=== PATIENT | male | born 1965 | race Caucasian/White ===

== ENCOUNTER → 2018-03-28 | Outpatient (CLI) | payer BC ==
--- NOTE | 2018-03-28 14:09 | EST ---
EXERCISE STRESS DATE OF SERVICE: 03/28/2018 AGE: 52 SEX: Male HT: 5'5" WT: 210 PROTOCOL: Benny STAGE: II DURATION OF EXERCISE: 7:30 HEART RATE REST: 66 BLOOD PRESSURE REST: 114/79 MAXIMUM HEART RATE ACHIEVED: 145 MAXIMUM BLOOD PRESSURE: 179/62 85% MPHR: 141 100% MPHR: 166 METS: 9.1 INDICATIONS: Chest pain. CLINICAL INFORMATION: STRESS DATA: Pretesting physical examination showed a heart rate of 66, pressure is 114/79 mmHg. Baseline EKG showed sinus mechanism. The patient exercised on the treadmill according to Benny protocol for a total of 7 minutes and achieved 9.1 METs. Max heart rate was 145 which is about 91% of maximum predicted heart rate. Maximum blood pressure was 179/62 mmHg. Clinically the patient did not have any symptoms of chest pain or discomfort during the testing, but he did develop some shortness of breath. The EKG showed about 0.[address]-segment depression on recovery. CONCLUSION: 1. Good exercise tolerance. 2. Shortness of breath in response to exercise. 3. Mildly abnormal EKG in response to exercise with evidence of 0.[address]- segment depression on recovery. 4. If the chest discomfort is concerning, I would recommend doing stress test with imaging modality or coronary angiogram. MMODL / IJN: [id number] /
== END | disposition home or self-care (01) ==
LOC: RADNMMAIN 10:36
PROVIDERS: ATTEND Pediatrics
DX: R94.31 Abnormal electrocardiogram [ECG] [EKG] (principal); R06.02 Shortness of breath; R07.9 Chest pain, unspecified
CPT/HCPCS: 93017

== ENCOUNTER 2019-11-25 09:35 | Observation (INO) | payer BC ==
--- NOTE | 2019-11-25 10:20 | ED ---
General Adult HPI - General Chief complaint: Chest Pain Stated complaint: chest pain Time Seen by Provider: 11/25/19 09:37 Source: patient Mode of arrival: ambulatory Limitations: no limitations - History of Present Illness Initial comments: Dictation was produced using [employer] dictation software. please excuse any grammatical, word or spelling errors. Chief Complaint: 54-year-old male with no known medical history presents with chest pain. History of Present Illness: 54-year-old male presents today with chest pain. He states that the pain was severe and sharp to the left anterior area. He states it radiates to the back. She said the pain was so bad it dropped into his knees. 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 He states he was working with a leave when symptoms began. Patient reports that his pain as sharp and especially wors e with deep inspiration. Did complain of some mild diaphoresis. He states that his pain is improved although still apparent currently. The ROS documented in this emergency department record has been reviewed and confirmed by me. Those systems with pertinent positive or negative responses have been documented in the HPI. All other systems are other negative and/or noncontributory. PHYSICAL EXAM: General Impression: Alert and oriented x3, not in acute distress HEENT: Normocephalic atraumatic, extra-ocular movements intact, pupils equal and reactive to light bilaterally, mucous membranes moist. Cardiovascular: Heart regular rate and rhythm, S1&S2 audible, no murmurs, rubs or gallops Chest: Lungs clear to auscultation bilaterally, no rhonchi, no wheeze, no rales Abdomen: Bowel sounds present, abdomen soft, non-tender, non-distended, no organomegaly Musculoskeletal: Pulses present and equal in all extremities, no peripheral edema Motor: no focal deficits noted Neurological: CN II-XII grossly intact, no focal motor or sensory deficits noted Skin: Intact with no visualized rashes Psych: Normal affect and mood ED course: 54-year-old male presents with chest pain. Pain is atypical with typical features. Signs upon arrival are within acceptable limits.Laboratory evaluation obtained. CBC unremarkable. Coag panel unremarkable. Metabolic panel is negative. Troponin is negative. D-dimer 0.43. Given the patient reports that his pain was severe CT of the aorta was obtained. No evidence of acute aortic dissection. No evidence of PE. Patient states he still symptomatic he is concerned about his symptoms. Reassurance provided. He did not feel safe to be discharged. We'll admit patient for serial troponins and cardiology consultation. She given aspirin. Evaluated bedside and appears to be stable at this time. EKG interpretation: Ventricular rate 65, normal sinus rhythm, WY interval 188, care is 88, QTC 393.. No WY prolongation, no QTC prolongation, no ST or T-wave changes noted. Overall, this EKG is unremarkable - Related Data Home Medications Medication Instructions Recorded Confirmed Ibuprofen [Motrin] 800 mg PO TID PRN 11/25/19 11/25/19 Allergies Allergy/AdvReac Type Severity Reaction Status Date / Time No Known Allergies Allergy Verified 11/25/19 10:42 Review of Systems ROS Statement: Those systems with pertinent positive or pertinent negative responses have been documented in the HPI. ROS Other: All systems not noted in ROS Statement are negative. Past Medical History Past Medical History: Pneumonia History of Any Multi-Drug Resistant Organisms: None Reported Past Surgical History: Back Surgery, Orthopedic Surgery Additional Past Surgical History / Comment(s): Sx on bilateral feet, testical sx Past Psychological History: No Psychological Hx Reported Smoking Status: Former smoker Past Alcohol Use History: Occasional Past Drug Use History: None Reported General Exam Limitations: no limitations Course Vital Signs 11/25/19 09:37 Temperature 98.2 F Pulse Rate 67 Respiratory 20 Rate Blood Pressure 110/81 O2 Sat by Pulse 99 Oximetry Medical Decision Making - Lab Data Result diagrams: 11/25/19 09:51 11/25/19 09:51 Lab Results 11/25/19 11/25/19 11/25/19 Range/Units 09:51 09:51 09:51 WBC 7.7 (3.8-10.6) k/uL RBC 5.02 (4.30-5.90) m/uL Hgb 15.4 (13.0-17.5) gm/dL Hct 46.9 (39.0-53.0) % MCV 93.4 (80.0-100.0) fL MCH 30.7 (25.0-35.0) pg MCHC 32.8 (31.0-37.0) g/dL RDW 12.9 (11.5-15.5) % Plt Count 231 (150-450) k/uL Neutrophils % 65 % Lymphocytes % 25 % Monocytes % 7 % Eosinophils % 1 % Basophils % 1 % Neutrophils # 5.0 (1.3-7.7) k/uL Lymphocytes # 1.9 (1.0-4.8) k/uL Monocytes # 0.6 (0-1.0) k/uL Eosinophils # 0.1 (0-0.7) k/uL Basophils # 0.1 (0-0.2) k/uL PT 9.5 (9.0-12.0) sec INR 0.9 (<1.2) APTT 21.8 L (22.0-30.0) sec D-Dimer 0.43 (<0.60) mg/L FEU Sodium 139 (137-145) mmol/L Potassium 4.4 (3.5-5.1) mmol/L Chloride 107 (98-107) mmol/L Carbon Dioxide 25 (22-30) mmol/L Anion Gap 7 mmol/L BUN 18 (9-20) mg/dL Creatinine 0.93 (0.66-1.25) mg/dL Est GFR (CKD-EPI)AfAm >90 (>60 ml/min/1.73 sqM) Est GFR (CKD-EPI)NonAf >90 (>60 ml/min/1.73 sqM) Glucose 103 H (74-99) mg/dL Calcium 9.2 (8.4-10.2) mg/dL Magnesium 2.2 (1.6-2.3) mg/dL Total Bilirubin 1.6 H (0.2-1.3) mg/dL AST 33 (17-59) U/L ALT 27 (4-49) U/L Alkaline Phosphatase 70 (38-126) U/L Troponin I (0.000-0.034) ng/mL Total Protein 6.8 (6.3-8.2) g/dL Albumin 4.0 (3.5-5.0) g/dL 11/25/19 Range/Units 09:51 WBC (3.8-10.6) k/uL RBC (4.30-5.90) m/uL Hgb (13.0-17.5) gm/dL Hct (39.0-53.0) % MCV (80.0-100.0) fL MCH (25.0-35.0) pg MCHC (31.0-37.0) g/dL RDW (11.5-15.5) % Plt Count (150-450) k/uL Neutrophils % % Lymphocytes % % Monocytes % % Eosinophils % % Basophils % % Neutrophils # (1.3-7.7) k/uL Lymphocytes # (1.0-4.8) k/uL Monocytes # (0-1.0) k/uL Eosinophils # (0-0.7) k/uL Basophils # (0-0.2) k/uL PT (9.0-12.0) sec INR (<1.2) APTT (22.0-30.0) sec D-Dimer (<0.60) mg/L FEU Sodium (137-145) mmol/L Potassium (3.5-5.1) mmol/L Chloride (98-107) mmol/L Carbon Dioxide (22-30) mmol/L Anion Gap mmol/L BUN (9-20) mg/dL Creatinine (0.66-1.25) mg/dL Est GFR (CKD-EPI)AfAm (>60 ml/min/1.73 sqM) Est GFR (CKD-EPI)NonAf (>60 ml/min/1.73 sqM) Glucose (74-99) mg/dL Calcium (8.4-10.2) mg/dL Magnesium (1.6-2.3) mg/dL Total Bilirubin (0.2-1.3) mg/dL AST (17-59) U/L ALT (4-49) U/L Alkaline Phosphatase (38-126) U/L Troponin I <0.012 (0.000-0.034) ng/mL Total Protein (6.3-8.2) g/dL Albumin (3.5-5.0) g/dL Disposition Clinical Impression: Chest pain Disposition: ADMITTED IP TO THIS [facility] Condition: Fair Referrals: Daniel Johnston MD [Primary Care Provider] - 1-2 days Decision Time: 12:43
[2019-11-25 10:40] LABS: ALT 27 U/L (4-49); AST 33 U/L (17-59); African American GFR (CKD) >90 (>60 ml/min/1.73 sqM); Alkaline Phosphatase 70 U/L (38-126); Anion Gap 7 mmol/L; Basophils # (A) 0.1 k/uL (0-0.2); Basophils % (A) 1 %; Blood Urea Nitrogen 18 mg/dL (9-20); Calcium 9.2 mg/dL (8.4-10.2); Carbon Dioxide 25 mmol/L (22-30); Chloride 107 mmol/L (98-107); Eosinophils # (A) 0.1 k/uL (0-0.7); Eosinophils % (A) 1 %; Glucose 103 mg/dL (74-99); HCT 46.9 % (39.0-53.0); HGB 15.4 gm/dL (13.0-17.5); Lymphocytes # (A) 1.9 k/uL (1.0-4.8); Lymphocytes % (A) 25 %; MCH 30.7 pg (25.0-35.0); MCHC 32.8 g/dL (31.0-37.0); MCV 93.4 fL (80.0-100.0); Magnesium 2.2 mg/dL (1.6-2.3); Mean Platelet Volume 7.6; Monocytes # (A) 0.6 k/uL (0-1.0); Monocytes % (A) 7 %; Neutrophils % (A) 65 %; Non-African American GFR(CKD) >90 (>60 ml/min/1.73 sqM); Platelet Count 231 k/uL (150-450); RBC 5.02 m/uL (4.30-5.90); RDW 12.9 % (11.5-15.5); Sodium 139 mmol/L (137-145); Total Bilirubin 1.6 mg/dL (0.2-1.3); Total Protein 6.8 g/dL (6.3-8.2); WBC 7.7 k/uL (3.8-10.6)
--- NOTE | 2019-11-25 10:51 | XR ---
EXAMINATION TYPE: XR chest 2V DATE OF EXAM: 11/25/2019 COMPARISON: NONE HISTORY: Chest pain TECHNIQUE: Frontal and lateral views of the chest are obtained. FINDINGS: There is no focal air space opacity, pleural effusion, or pneumothorax seen. The cardiac silhouette size is within normal limits. The osseous structures are intact. There are overlying car diac leads. IMPRESSION: No acute cardiopulmonary process.
[2019-11-25 10:53] LABS: Potassium 4.4 mmol/L (3.5-5.1)
[2019-11-25 10:55] LABS: D-Dimer 0.43 mg/L FEU (<0.60); INR 0.9 (<1.2); Prothrombin Time 9.5 sec (9.0-12.0)
[2019-11-25 10:56] LABS: Partial Thromboplastin Time 21.8 sec (22.0-30.0)
--- NOTE | 2019-11-25 12:26 | CT ---
EXAMINATION TYPE: CT angio thor/abd pel aorta DATE OF EXAM: 11/25/2019 COMPARISON: None. HISTORY: Chest and Upper Abdominal pain with shortness of breath CT DLP: 1692.1 mGycm. Automated Exposure Control for Dose Reduction was Utilized. CONTRAST: CTA scan of the thorax abdomen pelvis is performed without and with IV Contrast, patient injected wit h 100 mL of Isovue 370. Vascular protocol with 3-D reconstructed images. In the dependent workstation and reviewed FINDINGS: VASCULAR: Satisfactory enhancement of the pulmonary artery and its branches, no CT evidence for acute pulmonary embolism. Aorta is visualized in its entirety including through the common femoral artery bifurcation bilateral groin region. Patency of vessels from aortic arch. Patent celiac artery, SMA, I MA, and bilateral single renal arteries. No significant stenosis. No linear hypodensity to suggest di ssection. No aneurysm. Minimal calcified plaque distal abdominal aorta. LUNGS: Some patchy bibasilar linear scarring and/or atelectasis There is no pleural effusion or pneum othorax seen. The tracheobronchial tree is patent. No concerning nodules or masses. MEDIASTINUM: There are no greater than 1 cm hilar or mediastinal lymph nodes. No pericardial effusi on is seen. LIVER/GB: Liver is low dense consistent with diffuse fatty infiltration. PANCREAS: No significant abnormality is seen. SPLEEN: No significant abnormality is seen. ADRENALS: No significant abnormality is seen. KIDNEYS: No significant abnormality is seen. BOWEL: Appendix slightly more dilated at tip without surrounding fat stranding up to 8 mm axial image 168. Central low dense material. GENITAL ORGANS: No gross abnormality seen. LYMPH NODES: No greater than 1cm abdominal or pelvic lymph nodes are appreciated. OSSEOUS STRUCTURES: Postsurgical change lumbosacral junction with posterior fusion hardware, grade 1 anterolisthesis L5 on S1 measuring 6 mm. Moderate disc space narrowing with vacuum disc phenomenon L5 -S1 level. Well-corticated defect anterior superior T11 endplate could reflect limbus vertebra. OTHER: No significant additional abnormality is seen. IMPRESSION: 1. No aortic aneurysm or dissection. No acute pulmonary embolism. No acute findings are evident. 2. Cannot exclude focal mucocele of the tip of appendix. No surrounding inflammatory change. Nonemerg ent surgical referral is advised.
[2019-11-25] MEDS ORDERED: ASPIRIN 81 MG PO STA (12:40)
[2019-11-26 03:29] LABS: Cholesterol 183 mg/dL (<200); HDL Cholesterol 42 mg/dL (40-60); LDL Cholesterol,Calculated 112 mg/dL (0-99); Triglycerides 146 mg/dL (<150)
[2019-11-26 08:00] VITALS: RESP 18
[2019-11-26] MEDS ORDERED: ASPIRIN 325 MG TAB PO SCH (09:00)
[2019-11-26 11:45] VITALS: BP 126/82; PULSE 72; TEMP 97.8
[2019-11-26] MEDS ORDERED: ATORVASTATIN 20 MG TAB PO SCH (11:45)
--- NOTE | 2019-11-26 11:59 | NM ---
EXAMINATION TYPE: NM stress cardiolite complete DATE OF EXAM: 11/26/2019 COMPARISON: NONE HISTORY: Chest pain TECHNIQUE: After the intravenous administration of 9.9 mCi Tc 99m Sestamibi - Rest images obtained 4 5 minutes post injection. The patient exercised using a RANDAL protocol and 1 minute prior to peak e xercise was injected with 26.6 mCi Tc 99m Sestamibi - Stress images obtained 15 minutes post injectio n. FINDINGS: Targeted heart rate was achieved during performance of the study. Review of stress and rest SPECT marilu ges demonstrates no distinct perfusion abnormality. Gated analysis shows normal wall motion with an estimated left ventricular ejection fraction of 65 %. IMPRESSION: No scintigraphic evidence for reversible ischemia
--- NOTE | 2019-11-26 13:00 | ECHOF ---
Referral Reason:cp MEASUREMENTS -------- HEIGHT: 165.1 cm WEIGHT: 86.2 kg BP: RVIDd: 4.1 cm (< 3.3) IVSd: 1.2 cm (0.6 - 1.1) LVIDd: 3.9 cm (3.9 - 5.3) LVPWd: 1.4 cm (0.6 - 1.1) IVSs: 1.3 cm LVIDs: 2.6 cm LVPWs: 1.7 cm LA Diam: 3.3 cm (2.7 - 3.8) Ao Diam: 3.0 cm (2.0 - 3.7) AV Cusp: 1.8 cm (1.5 - 2.6) LA Diam: 3.9 cm (2.7 - 3.8) MV EXCURSION: 21.518 mm (> 18.000) MV EF SLOPE: 107 mm/s (70 - 150) EPSS: 0.2 cm MV E Dax: 0.52 m/s MV DecT: 205 ms MV A Dax: 0.52 m/s MV E/A Ratio: 1.00 RAP: 5.00 mmHg RVSP: 15.17 mmHg FINDINGS -------- Sinus rhythm. This was a technically good study. The left ventricular size is normal. There is mild concentric left ventricular hypertrophy. Overa ll left ventricular systolic function is normal with, an EF between 60 - 65 %. The diastolic fillin g pattern is normal for the age of the patient 5.15. The right ventricle is normal in size. The left atrial size is normal. The right atrial size is normal. The aortic valve is trileaflet, and appears structurally normal. No aortic stenosis or regurgitation. Mild mitral regurgitation is present. Mild tricuspid regurgitation present. Right ventricular systolic pressure is normal at < 35 mmHg. There is no evidence of pulmonary hypertension. There is no pulmonic regurgitation present. The aortic root size is normal. There is no pericardial effusion. CONCLUSIONS -------- 1. Sinus rhythm. 2. This was a technically good study. 3. The left ventricular size is normal. 4. There is mild concentric left ventricular hypertrophy. 5. Overall left ventricular systolic function is normal with, an EF between 60 - 65 %. 6. The diastolic filling pattern is normal for the age of the patient 5.15 7. The right ventricle is normal in size. 8. The left atrial size is normal. 9. The right atrial size is normal. 10. The aortic valve is trileaflet, and appears structurally normal. No aortic stenosis or regurgitat ion. 11. Mild mitral regurgitation is present. 12. Mild tricuspid regurgitation present. 13. Right ventricular systolic pressure is normal at < 35 mmHg. 14. There is no evidence of pulmonary hypertension. 15. There is no pulmonic regurgitation present. 16. The aortic root size is normal. 17. There is no pericardial effusion. FREEZER ASSISTANT: Radha Carmen RDCS
--- NOTE | 2019-11-26 13:17 | P.CRDCN ---
History of Present Illness History of present illness: HISTORY OF PRESENTING ILLNESS This is a pleasant 54-year-old male with no significant past medical history. 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 His mother had bypass surgery at the age of 60. We have been asked to see in consultation for chest pain. He states yesterday while a work doing a lot of lifting and moving around he started feeling a pressure in the chest in the mid-sternal region associated with shortness of breath. Also has some sharp shooting pains. He became diaphoretic, light headed and racing h eart. This episode lasted around 15-20 minutes. After the initial episode of chest discomfort subsided he had some tingling down his neck and left arm. DIAGNOSTICS EKG reveals sinus mechanism with no acute ST or T-wave abnormalities. Chest xray again for an acute cardiopulmonary process. CT of the chest negative for pulmonary embolism with a normal-appearing aorta with no evidence of aneurysm or dissection. Discussed with Dr. jose zaragoza and he states there is no coronary calcifications noted. Laboratory reviewed, CBC unremarkable, d-dimer 0.43, sodium 139, potassium 4.4, creatinine 0.93, magnesium 2.2, cardiac enzymes negative 3, LDL 112 and NT proBNP 20. He takes no daily cardiac medications. REVIEW OF SYSTEMS At the time of my exam: CONSTITUTIONAL: Denies fever or chills. CARDIOVASCULAR: Denies chest pain, shortness of breath, orthopnea, PND or palpitations. RESPIRATORY: Denies cough. GASTROINTESTINAL: Denies abdominal pain, diarrhea, constipation, nausea or vomiting. MUSCULOSKELETAL: Denies myalgias. NEUROLOGIC: Denies numbness, tingling or weakness. ENDOCRINE: Denies fatigue, weight change, polydipsia or polyurina. GENITOURINARY: Denies burning, hematuria or urgency with micturation. HEMATOLOGIC: Denies history of anemia or bleeding. PHYSICAL EXAMINATION Blood pressure 125/77 heart rate 58 afebrile and maintaining oxygen saturation on room air. CONSTITUTIONAL: No apparent distress. HEENT: Head is normocephalic. Pupils are equal, round. Sclerae anicteric. Mucous membranes of the mouth are moist. No JVD. No carotid bruit. CHEST EXAMINATION: Lungs are clear to auscultation. No chest wall tenderness is noted on palpation or with deep breathing. HEART EXAMINATION: Regular rate and rhythm. S1, S2 heard. No murmurs, gallops or rub. ABDOMEN: Soft, nontender. Positive bowel sounds. EXTREMITIES: 2+ peripheral pulses, no lower extremity edema and no calf ten derness. NEUROLOGIC EXAMINATION: Patient is awake, alert and oriented x3. ASSESSMENT Chest pain Dyslipidemia Family history of premature coronary artery disease PLAN An acute coronary event has been ruled out. Given his family history and elevated LDL, we recommend initiation of atorvastatin 20 mg daily for primary prevention. Obtain 2-D echocardiogram and Doppler study to assess cardiac structure and function. Perform Cardiolite stress test to assess for stress-induced reversible ischemia. If stress test is abnormal we will consider coronary angiography. Thank you kindly for this consultation. Nurse Practitioner note has been reviewed, I agree with a documented findings and plan of care. Patient was seen and examined. Past Medical History Past Medical History: GERD/Reflux, Pneumonia Additional Past Medical History / Comment(s): Legionella pneumonia, muscle spasms in R leg/R arm and back, bilateral tinnitis at times. 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 Smoking Status: Former smoker - Past Family History Father Additional Family Medical History / Comment(s): ETOH abuse. from fall injury Mother Family Medical History: Cancer Additional Family Medical History / Comment(s): Mother had MRSA infection. She of cancer-pt cannot recall type. She was 65-70 yrs old. Medications and Allergies Home Medications Medication Instructions Recorded Confirmed Type Ibuprofen [Motrin] 800 mg PO TID PRN 11/25/19 11/25/19 History Allergies Allergy/AdvReac Type Severity Reaction Status Date / Time No Known Allergies Allergy Verified 11/25/19 10:42 Physical Exam Vitals: Vital Signs Temp Pulse Pulse Resp BP BP Pulse Ox 11/26/19 07:15 98.1 F 58 L 18 125/77 96 11/26/19 04:00 98.2 F 57 L 16 108/70 98 11/26/19 00:00 98.0 F 67 17 123/72 99 11/25/19 19:11 98.3 F 65 112/70 98 11/25/19 16:00 98.1 F 71 20 123/74 95 11/25/19 13:24 98 F 65 18 135/83 94 L 11/25/19 13:12 64 16 126/91 97 11/25/19 13:00 64 16 126/91 97 11/25/19 12:50 60 17 126/91 96 11/25/19 12:40 61 16 126/91 95 11/25/19 12:30 66 15 109/78 98 11/25/19 12:20 67 18 109/78 97 11/25/19 12:10 65 18 109/78 96 11/25/19 12:00 70 18 110/83 96 11/25/19 11:50 110/83 11/25/19 11:40 110/83 11/25/19 11:30 60 16 112/83 98 11/25/19 11:20 61 14 112/83 94 L 11/25/19 11:10 68 12 112/83 98 11/25/19 11:00 65 16 111/84 98 11/25/19 10:50 59 L 18 111/84 96 11/25/19 10:40 62 16 111/84 98 11/25/19 10:30 117/80 11/25/19 10:20 63 16 117/80 99 11/25/19 10:10 68 18 117/80 99 11/25/19 10:00 67 14 110/81 99 11/25/19 09:50 110/81 11/25/19 09:41 99 11/25/19 09:37 98.2 F 67 20 110/81 99 Intake and Output 11/25/19 11/26/19 11/26/19 22:59 06:59 14:59 Other: Voiding Method Toilet Results 11/25/19 09:51 11/25/19 09:51 Cardiac Enzymes 11/25/19 11/25/19 11/25/19 Range/Units 09:51 09:51 16:43 AST 33 (17-59) U/L Troponin I <0.012 <0.012 (0.000-0.034) ng/mL 11/25/19 Range/Units 21:24 AST (17-59) U/L Troponin I <0.012 (0.000-0.034) ng/mL Coagulation 11/25/19 Range/Units 09:51 PT 9.5 (9.0-12.0) sec APTT 21.8 L (22.0-30.0) sec Lipids 11/25/19 Range/Units 09:12 Triglycerides 146 (<150) mg/dL Cholesterol 183 (<200) mg/dL HDL Cholesterol 42 (40-60) mg/dL CBC 11/25/19 Range/Units 09:51 WBC 7.7 (3.8-10.6) k/uL RBC 5.02 (4.30-5.90) m/uL Hgb 15.4 (13.0-17.5) gm/dL Hct 46.9 (39.0-53.0) % Plt Count 231 (150-450) k/uL Comprehensive Metabolic Panel 11/25/19 Range/Units 09:51 Sodium 139 (137-145) mmol/L Potassium 4.4 (3.5-5.1) mmol/L Chloride 107 (98-107) mmol/L Carbon Dioxide 25 (22-30) mmol/L BUN 18 (9-20) mg/dL Creatinine 0.93 (0.66-1.25) mg/dL Glucose 103 H (74-99) mg/dL Calcium 9.2 (8.4-10.2) mg/dL AST 33 (17-59) U/L ALT 27 (4-49) U/L Alkaline Phosphatase 70 (38-126) U/L Total Protein 6.8 (6.3-8.2) g/dL Albumin 4.0 (3.5-5.0) g/dL Current Medications Generic Name Dose Route Start Last Admin Trade Name Kimberly PRN Reason Stop Dose Admin Aspirin 325 mg 11/26/19 09:00 Aspirin PO DAILY BENIGNO Intake and Output 11/25/19 11/26/19 11/26/19 22:59 06:59 14:59 Other: Voiding Method Toilet 11/25/19 09:51 11/25/19 09:51
--- NOTE | 2019-11-26 13:26 | EST ---
EXERCISE STRESS DATE OF SERVICE: 12/27/2019 AGE: 54 SEX: Male HT: 64" WT: 190 pounds PROTOCOL: Cardiolite STAGE: III DURATION OF EXERCISE: 11 minutes HEART RATE REST: 75 BLOOD PRESSURE REST: 122/87 MAXIMUM HEART RATE ACHIEVED: 140 MAXIMUM BLOOD PRESSURE: 122/55 85% MPHR: 139 100% MPHR: 164 METS: 11 INDICATIONS: Chest pain. CLINICAL INFORMATION: Patient was exercised for a total period of 11 minutes. Peak heart rate of 140, was achieved. Maximum blood pressure of 122/55 mmHg was noted. The resting EKG shows normal sinus rhythm with normal IN interval and QRS duration and normal ST-T waves. No ST-segment depression suggestive of ischemia is noted. The patient did not complain of any chest pain during the test. FINAL IMPRESSION: This exercise test is not suggestive of ischemia. The patient did not complain of any chest pain during the test. The results of the nuclear study will follow. KAREN / YEHUDAN: [id number] /
--- NOTE | 2019-11-27 15:00 | P.HPIM ---
History of Present Illness H&P Date: 11/26/19 Chief Complaint: Chest pain History of presenting complaint: This is a pleasant 54-year-old patient of Dr. Johnston. Other pretty active. Patient was at work yesterday when he simply the blood pressure pretty sharp in the chest. Some shortness of breath some dizziness some perspiration. Lasted for about 15 minutes and this settled down. No nausea vomiting. Appetite is fair. 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 No prior cardiac history. Admitted to rule out cardiac cause. No aggravating or relieving factors. 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 Smoked for about 17 years stopped in 1989 Physical examination: VITAL SIGNS: 98.2, 67, 20, 110/81, 99% on room air GENERAL: BMI 32.6, sitting up comfortable. EYES: Pupils equal. Conjunctiva normal. HEENT: External appearance of nose and ears normal, oral cavity grossly normal. NECK: JVD not raised; masses not palpable. HEART: First and second heart sounds are normal; no edema. LUNGS: Respiratory rate normal; clear to auscultation. ABDOMEN: Soft, nontender, liver spleen not palpable, no masses palpable. PSYCH: Alert and oriented x3; mood and affect normal. NEUROLOGICAL: Cranial nerves grossly intact; no facial asymmetry, power and sensation grossly intact. LYMPHATICS: No lymph nodes palpable in the axilla and neck INVESTIGATIONS, reviewed in the clinical context: White count 7.7 hemoglobin 15.4 platelets 231 potassium 4.4 bun 18 creatinine 0.93 Troponin I 3 negative Chest x-ray film personally reviewed by me-lung cummings clear Chest CTA-negative for aortic aneurysm dissection LDL 112 Assessment: -Anterior chest wall pain. Cardiology was factors including being ex-smoker. Rule out cardiac cause. -Chronic tinnitus Plan: Troponin is a negative. Cardiology was consulted. Stress test was ordered. Past Medical History Past Medical History: GERD/Reflux, Pneumonia Additional Past Medical History / Comment(s): Legionella pneumonia, muscle spasms in R leg/R arm and back, bilateral tinnitis at times. 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 Smoking Status: Former smoker - Past Family History Father Additional Family Medical History / Comment(s): ETOH abuse. from fall injury Mother Family Medical History: Cancer Additional Family Medical History / Comment(s): Mother had MRSA infection. She of cancer-pt cannot recall type. She was 65-70 yrs old. Medications and Allergies Home Medications Medication Instructions Recorded Confirmed Type Ibuprofen [Motrin] 800 mg PO TID PRN 11/25/19 11/25/19 History Aspirin 81 mg PO DAILY #30 chewable 11/26/19 Rx Atorvastatin [Lipitor] 20 mg PO DAILY #1 tab 11/26/19 Rx Allergies Allergy/AdvReac Type Severity Reaction Status Date / Time No Known Allergies Allergy Verified 11/25/19 10:42 Physical Exam Vitals: Vital Signs Temp Pulse Pulse Resp BP BP Pulse Ox 11/26/19 07:15 98.1 F 58 L 18 125/77 96 11/26/19 04:00 98.2 F 57 L 16 108/70 98 11/26/19 00:00 98.0 F 67 17 123/72 99 11/25/19 19:11 98.3 F 65 112/70 98 11/25/19 16:00 98.1 F 71 20 123/74 95 11/25/19 13:24 98 F 65 18 135/83 94 L 11/25/19 13:12 64 16 126/91 97 11/25/19 13:00 64 16 126/91 97 11/25/19 12:50 60 17 126/91 96 11/25/19 12:40 61 16 126/91 95 11/25/19 12:30 66 15 109/78 98 11/25/19 12:20 67 18 109/78 97 11/25/19 12:10 65 18 109/78 96 11/25/19 12:00 70 18 110/83 96 11/25/19 11:50 110/83 11/25/19 11:40 110/83 11/25/19 11:30 60 16 112/83 98 01/22/20 11:20 61 14 112/83 94 L 11/25/19 11:10 68 12 112/83 98 11/25/19 11:00 65 16 111/84 98 11/25/19 10:50 59 L 18 111/84 96 11/25/19 10:40 62 16 111/84 98 11/25/19 10:30 117/80 Intake and Output 11/25/19 11/26/19 11/26/19 22:59 06:59 14:59 Other: Voiding Method Toilet Toilet Results CBC & Chem 7: 11/25/19 09:51 11/25/19 09:51 Labs: Abnormal Lab Results - Last 24 Hours (Table) 11/25/19 11/25/19 11/25/19 Range/Units 09:12 09:51 09:51 APTT 21.8 L (22.0-30.0) sec Glucose 103 H (74-99) mg/dL Total Bilirubin 1.6 H (0.2-1.3) mg/dL LDL Cholesterol, Calc 112 H (0-99) mg/dL Thrombosis Risk Factor Assmnt - Choose All That Apply Any of the Below Risk Factors Present?: Yes Each Factor Represents 1 point: Age 41-60 years, Obesity (BMI >25) Other Risk Factors: No Other congenital or acquired thrombophilia - If yes, enter type in comment: No Thrombosis Risk Factor Assessment Total Risk Factor Score: 2 Thrombosis Risk Factor Assessment Level: Low Risk
--- NOTE | 2019-11-27 15:05 | P.DS ---
Providers Date of admission: 11/25/19 12:40 Expected date of discharge: 11/26/19 Attending physician: Cayetano Hopkins Consults: 11/25/19 12:40 Consult Physician Stat Consulting Provider: Sharan Nielsen Consult Reason/Comments: chest pain Do you want consulting provider notified?: Yes Primary care physician: Daniel Johnston [facility] Course: Chief Complaint: Chest pain History of presenting complaint: This is a pleasant 54-year-old patient of Dr. Johnston. Other pretty active. Patient was at work yesterday when he simply the blood pressure pretty sharp in the chest. Some shortness of breath some dizziness some perspiration. Lasted for about 15 minutes and this settled down. No nausea vomiting. Appetite is fair. 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 No prior cardiac history. Admitted to rule out cardiac cause. No aggravating or relieving factors. Cardiolite stress test was negative. Consultation: Dr. VC Matias-cardiology Physical examination: VITAL SIGNS: 68, 18, 117/80, 99% room air GENERAL:, sitting up comfortable. EYES: Pupils equal. Conjunctiva normal. HEENT: External appearance of nose and ears normal, oral cavity grossly normal. NECK: JVD not raised; masses not palpable. HEART: First and second heart sounds are normal; no edema. LUNGS: Respiratory rate normal; clear to auscultation. ABDOMEN: Soft, nontender, liver spleen not palpable, no masses palpable. PSYCH: Alert and oriented x3; mood and affect normal. INVESTIGATIONS, reviewed in the clinical context: White count 7.7 hemoglobin 15.4 platelets 231 potassium 4.4 bun 18 creatinine 0.93 Troponin I 3 negative Chest x-ray film personally reviewed by mi-lung cummings clear Chest CTA-negative for aortic aneurysm dissection LDL 112 2-D echo-year 60-65% Nuclear stress test-negative Assessment: -Anterior chest wall pain. Possibly musculoskeletal -Chronic tinnitus Disposition: Home Patient Condition at Discharge: Fair Plan - Discharge Summary Discharge Rx Participant: No New Discharge Prescriptions: New Aspirin 81 mg PO DAILY #30 chewable Atorvastatin [Lipitor] 20 mg PO DAILY #1 tab Continue Ibuprofen [Motrin] 800 mg PO TID PRN PRN Reason: Pain Discharge Medication List Ibuprofen [Motrin] 800 mg PO TID PRN 11/25/19 [History] Aspirin 81 mg PO DAILY #30 chewable 11/26/19 [Rx] Atorvastatin [Lipitor] 20 mg PO DAILY #1 tab 11/26/19 [Rx] Follow up Appointment(s)/Referral(s): Tom Tolentino MD [STAFF PHYSICIAN] - 12/21/19 9:30 am Daniel Johnston MD [Primary Care Provider] - 11/30/19 9:30 am (With Padmini BLACKBURN) Patient Instructions/Handouts: Chest Pain (DC) Discharge Disposition: HOME SELF-CARE
== END 2019-11-26 14:24 | disposition home or self-care (01) ==
LOC: EC 09:35 → 1SOBS 12:40
PROVIDERS: ADMIT Hospitalist; ATTEND Hospitalist
DX: R07.89 Other chest pain (principal); H93.19 Tinnitus, unspecified ear; R06.02 Shortness of breath; R42 Dizziness and giddiness; R61 Generalized hyperhidrosis; K21.9 Gastro-esophageal reflux disease without esophagitis; E78.5 Hyperlipidemia, unspecified; E66.9 Obesity, unspecified; Z68.32 Body mass index [BMI] 32.0-32.9, adult; Z87.01 Personal history of pneumonia (recurrent); Z98.890 Other specified postprocedural states; Z87.891 Personal history of nicotine dependence; Z87.39 Personal history of other diseases of the musculoskeletal system and connective tissue; Z81.1 Family history of alcohol abuse and dependence; Z80.9 Family history of malignant neoplasm, unspecified; Z83.1 Family history of other infectious and parasitic diseases; Z82.49 Family history of ischemic heart disease and other diseases of the circulatory system
CPT/HCPCS: 99285; 36415; 93005; 93017; 93306; 85379; 83880; 80061; 80053; 83735; 84484; 85025; 85610; 85730; 71046; 71275; 74174; 78452; G0378 ×2; A9500; Q9967

== ENCOUNTER → 2021-12-11 | Outpatient (CLI) | payer OTHER ==
--- NOTE | 2021-12-12 04:19 | MR ---
EXAMINATION TYPE: MR lumbar spine wo/w con DATE OF EXAM: 12/11/2021 COMPARISON: None HISTORY: LBP, RLE pain/numbness. Prior surgery 8 yrs ago. CONTRAST: Standard multiplanar, multisequence MRI departmental protocol images were obtained without contrast a nd with 9 mL intravenous Gadavist gadolinium contrast. There is a first-degree L5-S1 spondylolisthesis. There is 8mm subluxation. There is metal artifact fr om posterior fusion surgery at L5-S1. There is no evidence of lumbar spinal stenosis. There is no com pression fracture. There is a small posterior disc bulge at L4-5 and also T12-L1. No spinal stenosis. The sacroiliac joints are intact. There is no lumbar paraspinal mass. There is no evidence of focal b one destruction. IMPRESSION: Posterior fusion surgery. L5-S1 first-degree spondylolisthesis. No spinal stenosis. No fracture.
== END | disposition home or self-care (01) ==
LOC: RADMRIMAIN 16:14
PROVIDERS: ATTEND Physical Medicine & Rehabilitation
DX: M43.17 Spondylolisthesis, lumbosacral region (principal)
CPT/HCPCS: 72158; A9585

== ENCOUNTER → 2022-02-15 | Outpatient (CLI) | payer OTHER ==
[2022-02-15 13:00] VITALS: BP 114/83; PULSE 84; RESP 18; TEMP 98.2
--- NOTE | 2022-02-15 13:16 | P.CON ---
Consult Note - . Consult date: 02/15/22 Assessment/Plan:: HISTORY OF PRESENT ILLNESS: 56 yr old male as a referral from Dr Esparza presents today with lower back pain secondary to spondylolisthesis for evaluation. He shouldn't states his lower back pain is 8 out of 10 in intensity, constant, dull, achy in character with radiation of pain and numbness occasionally down the right lower extremity. Pain is provoked with bending, twisting and lifting. Pain is relieved with medications (Tylenol [address] Brar), topicals, injections, ice with no relief, physical therapy after fusion surgery, chiropractic treatments in the past, daily home stretching regimen and rest. PMH: Asthma, Hyperlipidemia, DMII PSH: T12-L1 fusion, L5-S1 fusion (2016), L biceps repair, BL foot surgery SH: Hx of tobacco use, no ETOH abuse, no illicit drug use. FH: DMII All: Gabapentin Meds: See list REVIEW OF ORGAN SYSTEMS: CONSTITUTIONAL: No fevers or chills. No recent weight loss. HEENT: No visual acuity loss, eye pain, difficulties with hearing. No nosebleeds. No difficulty swallowing. RESPIRATORY: Denies any troubles with breathing or dyspnea on exertion. CARDIOVASCULAR: Denies any chest pain, palpitations, or r ecent heart attacks. GASTROINTESTINAL: Denies fatty food intolerance. Has change in bowel habits and gas bloat. GENITOURINARY: Denies any blood in urine. Has increased urinary frequency. NEUROLOGICAL: + numbness and tingling along the distal extremities. No seizure disorders or headaches. MUSCULOSKELETAL: + back pain SKIN: No skin cancer. No rash. PSYCHIATRIC: Denies current depression or suicidal thoughts. ENDOCRINE: Denies current thyroid disorders. Denies any blood sugar glucose intolerance. HEME/LYMPHATIC: Denies any lumps and bumps around the neck. History of deep venous thrombosis. ALLERGY/IMMUNOLOGY: No immunoglobulin therapy. No immune deficiencies. BREAST: Denies current breast lumps, pain or nipple discharge. Physical Examinations : Constitutional : Cooperative , not in acute distress . HEENT: Neck supple. No Lymphadenopathy. Normal thyroid size . Eyes no ptosis , no icterus, no photophobia . Hearing intact. Normal oropharynx. No Thrush. Respiratory : Chest clear to auscultations bilaterally. No whe ezing. No rhonchi. Cardiovascular : Regular rate and rhythm , S1 / S2. No S3 . No S4. Gastrointestinal : Abdomen soft. No tenderness. Bowel sounds x 4. No organomegaly . Genitourinary : Deferred. Neurologic : Cranial nerve II to XII intact. No focal neurological deficits. Psychiatric : alert & oriented x 3. Matching mood & appropriate affect. Judgment & insight intact. Lymphatic No Lymphadenopathy. Musculoskeletal : Cervical Spine Motor strength in the deltoid and biceps: Normal right side. Normal Left side Motor strength biceps and the wrist extensors: Normal right side . Normal left side Motor strength in the triceps muscle: Normal right side. Normal left side Deep tendon reflexes: Normal at the biceps. Normal at Brachioradialis. Normal at triceps Cervical facet loading test: positive bilaterally Spurling test: positive bilaterally Neck distraction test: positive bilaterally Cori sign: positive bilaterally Lumbar spine Motor strength lower extremities ,thigh and legs 5/5 Right side , 5/5 Left side Deep tendon reflexes : Normal Knee Jerk. Normal Ankle Jerk Vertebral body tenderness over L4, L5 Lumbar facet Loading Test: positive Right / positive Left Range of motion of the lumbar spine Flexion 30 degrees, extension 10 degrees Straight Leg Raise test: Left/ Right positive at 30 degrees Radha test: positive right / positive left. Severe tenderness over the Sacroiliac joint on the Right / Left sides Gaenslen test: positive bilaterally Seated flexion test: positive bilaterally. Imaging: MRI of the Lumbar spine without contrast from 12/11/21 reviewed. Assessment/ Plan : Recommendation of FUENTES L4-L5. May need a series of injections, up to 3 within a six-month period, for optimal pain relief. Risks, benefits of procedure discussed and patient verbalized understanding. Admits to aspirin use. Admits to medical history of diabetes. Protocol for discontinuation/ continuation of medications ishaan procedure discussed. All questions answered. I have spent greater than 50 minutes on patient care today. Dr Green was available by phone for the evaluation of this patient. The time was used to review the medical records including relevant urine studies and Prescription history (MAPs), review of the available imaging, evaluation and examination of the patient, coordination of care with the medical staff and if applicable referring physicians, as well as creation of the medical record PQRS Measure Charge Sheet Mode of Arrival: Ambulatory - Pain Location Lower Back Non-Pharmacological Interventions: Chiropractic Treatment, Home Exercise, Ice, Inactivity, Physical Therapy, Position/Reposition, Stretching Pharmacological Interventions: PRN Medication, Topical Medication PQRS Narrative: Smoking Status Former smoker Blood Pressure 114/83 Pain Intensity [Lower Back] 8 Scale Used Numeric (1 - 10) Hx Alcohol Use (MH) No Home Medications: Ambulatory Orders Ibuprofen [Motrin] 800 mg PO TID PRN 11/25/19 Aspirin 81 mg PO DAILY #30 chewable 11/26/19 Acetaminophen-Codeine 300-30mg [Tylenol w/codeine #3] 02/15/22 Magnesium 200 mg PO ONCE 02/15/22 Montelukast [Singulair] PO Q24HR 02/15/22 Zinc PO Q24HR 02/15/22 metFORMIN HCL 500 mg PO Q24HR 02/15/22
== END ==
LOC: PNWHC3 11:37
PROVIDERS: ATTEND Specialist
DX: M43.10 Spondylolisthesis, site unspecified (principal); J45.909 Unspecified asthma, uncomplicated; E78.5 Hyperlipidemia, unspecified; E11.9 Type 2 diabetes mellitus without complications; Z87.891 Personal history of nicotine dependence; Z88.6 Allergy status to analgesic agent
CPT/HCPCS: 99211

== ENCOUNTER → 2022-04-12 | Outpatient (CLI) | payer OTHER ==
[2022-04-12 14:05] VITALS: BP 140/82; PULSE 74; RESP 18; TEMP 98.2
--- NOTE | 2022-04-12 14:09 | P.PAINPG ---
PQRS Measure Charge Sheet Comment: A 56 yr old male with a history of severe and chronic low back pain secondary to lumbar degenerative disc diseases and lumbar spondylosis with facet arthropathy presents today for evaluation status post LESI L3-L4 #1. Patient states he experienced approximately % pain relief s/p procedure. Pain level is . Pain is dull/ achy/ sharp/ shooting towards . Pain is provoked by . Pain is alleviated with . Interventional pain procedures completed include LESI L3-L4 x1 Patient denies any side effects of the medication(s), denies excessive drowsiness or sleepiness, denies suicidal ideation and reports that the current pain medication is helping to control the pain and improve activities of daily living. Patient denies any motor or sensory deficits. Patient denies any fever or night sweats, denies any change in the bowel movements or urination. Physical Examination: -Constitutional: Cooperative. Not in acute distress . -HEENT: Neck is supple. No lymphadenopathy. No thyromegaly. Normal thyroid size. Eyes: No ptosis , no icterus, no photophobia. ENT: No auditory deficits. Normal oropharynx. No Thrush. - Respiratory: Chest clear to auscultations bilaterally. No wheezing. No rhonchi. - Cardiovascular: Regular rate and rhythm. S1 / S2 , no S3 , no S4. - Gastrointestinal: Abdomen soft no tenderness. Bowel sounds positive in all four quadrants. No organomegaly. - Genitourinary: Deferred. - Neurologic: Cranial nerve II to XII intact. No focal neurological deficits. - Psychatric: Alert & oriented x 3. Matching mood & appropriate affect. Judgment and insight intact. - Lymphatic: No Lymphadenopathy. - Musculoskeletal: Cervical spine: Muscle bulk/ tone/ strength in the bilateral upper extremities normal Vertebral body tenderness to palpation over Facet loading test positive Thoracic spine Muscle bulk / tone/ strength in the bilateral paraspinal muscles normal Vertebral body tender to palpation over Facet loading test positive Lumbar spine: Motor bulk/ tone/ strength lower extremities , thigh and legs : 5/5 Deep tendon reflexes : Normal Knee Jerk. Normal Ankle Jerk . Vertebral body tenderness to palpation over L4, L5 Lumbar Facet Loading Test positive Straight Leg Raise: positive at 30 degrees right side> left side Gaenslen's Test positive Sacral spine : Severe tenderness over the Sacroiliac joint: right side / left side Range of motion: Flexion of the lumbar spine <60 degrees Range of motion: Extension of the lumbar spine <20 degrees Gaenslen's Test positive Darron's Test positive Radha test: positive right side / left side Thigh Thrust Test Sacral Thrust Test Assessment and plan: Chronic low back pain secondary to lumbar degenerative disc disease , lumbar spondylosis with facet arthropathy without myelopathy Recommendation of FUENTES L4-L5 #2. May need a series of injections, up to 3 within a 6 month timeframe, for optimal pain relief. Risks, benefits of procedure discussed and pt verbalized understanding. Denies anticoagulant use. Admits to a medical history of diabetes. Protocol for discontin uation/continuation of medications ishaan procedure discussed. All patient questions answered MAPS reviewed and it was appropriate. I have spent 31 minutes on patient care today. Dr Green was available by phone for the evaluation of this patient. The time was used to review the medical records including relevant urine studies and Prescription history (MAPs), review of the available imaging, evaluation and examination of the patient, coordination of care with the medical staff and if applicable referring physicians, as well as creation of the medical record - Pain Location Lower Back Non-Pharmacological Interventions: Home Exercise, Ice, Inactivity, Physical Therapy, Position/Reposition, Sitting, Stretching Pharmacological Interventions: Epidural, PRN Medication, Topical Medication PQRS Narrative: Smoking Status Former smoker Hx Alcohol Use (MH) No Home Medications: Ambulatory Orders Aspirin 81 mg PO DAILY #30 chewable 11/26/19 Montelukast [Singulair] 10 mg PO DAILY 02/15/22 metFORMIN HCL 1,000 mg PO 1530 02/15/22 Magnesium + Zinc 1 tab PO DAILY 03/19/22 Controlled Substance Measures - Controlled Substance Measures Is patient prescribed a controlled substance at discharge?: No
== END ==
LOC: PNWHC3 13:32
PROVIDERS: ATTEND Specialist
DX: M51.36 Other intervertebral disc degeneration, lumbar region (principal); M47.816 Spondylosis without myelopathy or radiculopathy, lumbar region; G89.29 Other chronic pain; Z88.8 Allergy status to other drugs, medicaments and biological substances; Z87.891 Personal history of nicotine dependence
CPT/HCPCS: 99211

== ENCOUNTER 2022-05-22 07:13 | Day surgery (SDC) | payer OTHER ==
[2022-05-21 12:36] VITALS: BMI 30.2
[~2022-05-22 07:13] MED LIST: LACTATED RINGERS 1,000 ML IV SCH; LIDOCAINE 1% (10MG/ML) FOR IV START INTRADERMA PRN
[2022-05-22 07:40] VITALS: TEMP 96.6
[2022-05-22 07:53] LABS: Glucose,Whole Blood 97 mg/dL (70-110)
[2022-05-22] MEDS ORDERED: methylPREDNISolone ACETATE 40 MG/ML 1 ML VIAL ONE (08:10)
[2022-05-22] MEDS ORDERED: IOPAMIDOL M200 10 ML VIAL ONE (08:10)
[2022-05-22] MEDS ORDERED: MIDAZOLAM 2 MG/2 ML VIAL ONE (08:10)
[2022-05-22] MEDS ORDERED: fentaNYL (PF) 50 MCG/ML 2 ML AMP ONE (08:10)
--- NOTE | 2022-05-22 08:21 | P.PCN ---
Date of Procedure: 05/22/22 Procedure(s) Performed: PREOPERATIVE DIAGNOSIS: 1- Lumbar Degenerative Disc Diseases 2-Lumbar radiculopathy. 3-postlaminectomy pain syndrome lumbar area . POSTOPERATIVE DIAGNOSIS: Same as preop diagnosis. PROCEDURE 1. Lumbar epidural steroid injection under fluoroscopic guidance at the L4-5 level. (Fluoroscopy imaging was available in radiology department) 2. Lumbar epidurogram. ANESTHESIA: Local with 1% lidocaine 3 ml and , moderate sedation with intravenous Versed 2 mg ,and fentanyle 100 Mcg EBL: Minimal PROCEDURE INDICATION: The patient with low back pain and radiculitis symptoms unresponsive to conservative treatment. Fluoroscopy was used to optimize vi sualization of the needle placement and to maximize safety. PROCEDURE DESCRIPTION / TECHNIQUE: The patient was seen and identified in the preoperative area. Risks, benefits, complications including but not limited to infections ,bleeding ,allergic reaction to the medications ,nerve damage and not complete pain releife , and alternatives were discussed with the patient. The patient agreed to proceed with the procedure and signed the consent. IV was started, and vital signs were stable. Patient was taken to the OR and time out was completed. The patient was placed in the prone position on procedure table and a pillow was placed under the abdomen to reduce lumbar lordosis. The lumbosacral area was prepped and draped in the usual sterile fashion.ere closely monitored during the procedure. Conscious sedation was used during the procedure to decrease patients anxiety. Vital signs was monitered during the entire procedure. Using anterior-posterior fluoroscopy, the L4-5 interlaminar space was identified and the skin over this site was marked and then infiltrated with 1% lidocaine subcutaneously. Subsequently, a 20-gauge Tuohy epidural needle was inserted and advanced toward the epidural space using the ``Loss of resistance technique and guided by AP and lateral fluoroscopy. The correct needle position in the epidural space was verified with the injection of 2 mL of the water soluble contrast dye Isovue 200 contrast and observing an excellent epidurogram with the epidural spread of the dye, after negative aspiration for blood and CSF and in the absence of paresthesias. Again after negative aspiration, a 6 ml mixture containing 40 mg of Depo-medrol , and 2 ml of preservative free Normal Saline, and 2 ml of preservative free lidocaine 1% solution was injected and a washout of epidurogram was seen. Needle was withdrawn intact, skin was cleansed, and bandages were applied. COMPLICATIONS: None DISPOSITION / PLANS: The patient was placed in a supine position and transferred to the recovery area in a stable condition for observation. There was no evidence of lower extremity motor or sensory deficit after the procedure. Patient was discharged from the recovery room after meeting discharge criteria. Home discharge instructions were given to the patient by the staff. The patient was reexamined prior to discharge. The patient will schedule a follow up in the clinic in 2-4 weeks.
[2022-05-22] MEDS ORDERED: IV FLUID CONTINUATION 1,000 ML IV ONE (08:25)
--- NOTE | 2022-05-22 08:35 | FL ---
Fluoroscopy HISTORY: Pain 2 seconds fluoroscopy time supplied to the referring clinician. 1 intraoperative C-arm images docume nt the procedure. See dictated report from anesthesia.
[2022-05-22 08:57] VITALS: BP 95/64; PULSE 54; RESP 18
== END 2022-05-22 09:05 | disposition home or self-care (01) ==
LOC: ORPAIN 07:13
PROVIDERS: ATTEND Specialist
DX: M51.16 Intervertebral disc disorders with radiculopathy, lumbar region (principal); M96.1 Postlaminectomy syndrome, not elsewhere classified; Z88.8 Allergy status to other drugs, medicaments and biological substances; Z79.82 Long term (current) use of aspirin; Z79.84 Long term (current) use of oral hypoglycemic drugs; Z79.899 Other long term (current) drug therapy; Z87.891 Personal history of nicotine dependence; Z80.6 Family history of leukemia
CPT/HCPCS: 62323; J2250; J1030; J3010; Q9966

== ENCOUNTER → 2022-06-07 | Outpatient (CLI) | payer OTHER ==
[2022-06-07 12:35] VITALS: BP 109/71; PULSE 71; RESP 18; TEMP 98.1
--- NOTE | 2022-06-07 15:10 | P.PN ---
Subjective Progress Note Date: 06/07/22 This is followed positive for this 56 years old male with the straight of chronic severe low back pain patient had lumbar laminectomy surgery done several years ago and currently is complaining of severe done aching pain localized in the low back area with radiation to the lower extremity mainly to the right side associated with numbness and tingling sensation, is not relieved with the pain medication ,. Pain is provoked with bending, twisting and lifting. Pain is relieved with medications (Tylenol [address] Brar), topicals, injections, ice with no relief, physical therapy after fusion surgery, chiropractic treatments in the past, daily home stretching regimen and rest. Previously we have done lumbar epidural steroid injections 2 patient continued to have severe pain PMH: Asthma, Hyperlipidemia, DMII PSH: T12-L1 fusion, L5-S1 fusion (2015), L biceps repair, BL foot surgery SH: Hx of tobacco use, no ETOH abuse, no illicit drug use. FH: DMII All: Gabapentin Meds: See list Physical Examinations : Constitutional : Cooperative , not in acute distress . HEENT: Neck supple. No Lymphadenopathy. Normal thyroid size . Eyes no ptosis , no icterus, no photophobia . Hearing intact. Normal oropharynx. No Thrush. Neurologic : Cranial nerve II to XII intact. No focal neurological deficits. Psychiatric : alert & oriented x 3. Matching mood & appropriate affect. Judgment & insight intact. Lymphatic No Lymphadenopathy. Musculoskeletal : Lumbar spine Motor strength lower extremities ,thigh and legs 5/5 Right side , 5/5 Left side Deep tendon reflexes : Normal Knee Jerk. Normal Ankle Jerk Vertebral body tenderness over L4, L5 Lumbar facet Loading Test: positive Right / positive Left Range of motion of the lumbar spine Flexion 30 degrees, extension 10 degrees Straight Leg Raise test: Left/ Right positive at 30 degrees Radha test: positive right / positive left. Severe tenderness over the Sacroiliac joint on the Right / Left sides Gaenslen test: positive bilaterally Seated flexion test: positive bilaterally. Imaging: MRI of the Lumbar spine without contrast from 12/11/21 reviewed. Assessment/ Plan : Failed back surgery syndrome and lumbar area. Lumbar degenerative disc disease. Lumbar radiculopathy. Lumbar spondylosis. Sacroiliitis Patient continued to have pain after lumbar epidural steroid injections 2 Patient could benefit from caudal epidural steroid injection with lysis of epidural adhesions, her seizure risk and benefits and alternatives discussed with the patient he agreed with the preceding Objective - Vital Signs Vital signs: Vital Signs Temp 98.1 F 06/07/22 12:31 Pulse 71 06/07/22 12:31 Resp 18 06/07/22 12:31 BP 109/71 06/07/22 12:31 Pulse Ox 96 06/07/22 12:31 FiO2 Intake & Output 06/06/22 06/07/22 06/07/22 18:59 06:59 18:59 Weight 78.018 kg
== END ==
LOC: PNWHC3 12:13
PROVIDERS: ATTEND Specialist
DX: M51.16 Intervertebral disc disorders with radiculopathy, lumbar region (principal); M96.1 Postlaminectomy syndrome, not elsewhere classified; M47.26 Other spondylosis with radiculopathy, lumbar region; M46.1 Sacroiliitis, not elsewhere classified; J45.909 Unspecified asthma, uncomplicated; E78.5 Hyperlipidemia, unspecified; E11.9 Type 2 diabetes mellitus without complications; Z88.8 Allergy status to other drugs, medicaments and biological substances; Z87.891 Personal history of nicotine dependence
CPT/HCPCS: 99211

== ENCOUNTER 2023-04-10 14:22 | Emergency (ER) | payer OTHER ==
[2023-04-10 15:15] VITALS: BP 124/79; PULSE 63; RESP 18; TEMP 98
[2023-04-10] MEDS ORDERED: DIPH,PERTUS(ACELL)TETVAC-LF 0.5 ML VIAL IM ONE (16:03)
[2023-04-10] MEDS ORDERED: LIDOCAINE 1% INJ 10MG/ML (30 ML VIAL-PF) SQ ONE (16:03)
--- NOTE | 2023-04-10 16:05 | ED ---
General Adult HPI - General Chief complaint: Wound/Laceration Stated complaint: right hand injury Time Seen by Provider: 04/10/23 15:41 Source: patient, RN notes reviewed Mode of arrival: ambulatory Limitations: no limitations - History of Present Illness Initial comments: 57-year-old male with chief complaint of right hand injury. He states that he was working with a wrench when his hand slipped and hit the vice. He says he went to walk-in clinic who sent him here. He does not know the date of his last tetanus shot. Denies numbness, tingling. He reports full range of motion in all of his digits. - Related Data Home Medications Medication Instructions Recorded Confirmed Montelukast [Singulair] 10 mg PO DAILY 02/15/22 06/07/22 metFORMIN HCL 1,000 mg PO 1530 02/15/22 06/07/22 Magnesium + Zinc 1 tab PO DAILY 03/19/22 06/07/22 Previous Rx's Medication Instructions Recorded Aspirin 81 mg PO DAILY #30 chewable 11/26/19 Allergies Allergy/AdvReac Type Severity Reaction Status Date / Time gabapentin [From Neurontin] AdvReac Confusion/d Verified 04/10/23 15:14 epression Review of Systems ROS Statement: Those systems with pertinent positive or pertinent negative responses have been documented in the HPI. ROS Other: All systems not noted in ROS Statement are negative. Past Medical History Past Medical History: Diabetes Mellitus, GERD/Reflux, Pneumonia Additional Past Medical History / Comment(s): hx Legionella pneumonia, muscle spasms in R leg/R arm and back, bilateral tinnitis, back pain History of Any Multi-Drug Resistant Organisms: None Reported Past Surgical History: Back Surgery, Orthopedic Surgery Additional Past Surgical History / Comment(s): spinal fusion, bilateral foot surgeries for high arches/pigeon toed, L elbow tendon surgery, L testicular benign growth removed, colonosocpy. PAIN CLINIC PROCEDURES Past Anesthesia/Blood Transfusion Reactions: No Reported Reaction Past Psychological History: No Psychological Hx Reported Smoking Status: Former smoker Past Alcohol Use History: None Reported Past Drug Use History: None Reported - Past Family History Mother Family Medical History: Cancer Additional Family Medical History / Comment(s): leukemia General Exam Limitations: no limitations General appearance: alert, in no apparent distress Head exam: Present: atraumatic, normocephalic, normal inspection Eye exam: Present: normal appearance, PERRL, EOMI. Absent: scleral icterus, conjunctival injection, periorbital swelling ENT exam: Present: normal exam, mucous membranes moist Neck exam: Present: normal inspection. Absent: tenderness, meningismus, lymphadenopathy Respiratory exam: Present: normal lung sounds bilaterally. Absent: respiratory distress, wheezes, rales, rhonchi, stridor Cardiovascular Exam: Present: regular rate, normal rhythm, normal heart sounds. Absent: systolic murmur, diastolic murmur, rubs, gallop, clicks Extremities exam: Present: normal inspection, full ROM, normal capillary refill, other (1.5 cm laceration to the right dorsal hand between the third and fourth metacarpals). Absent: tenderness, pedal edema, joint swelling, calf tenderness Back exam: Present: normal inspection Neurological exam: Present: alert, oriented X3 Psychiatric exam: Present: normal affect, normal mood Skin exam: Present: warm, dry, intact, normal color. Absent: rash Course Vital Signs 04/10/23 15:11 Temperature 98.0 F Pulse Rate 63 Respiratory 18 Rate Blood Pressure 124/79 O2 Sat by Pulse 98 Oximetry Procedures - Laceration Laceration #1 Consent Obtained: verbal consent Indication: laceration Site: hand Size (cm): 1 Description: irregular Depth: simple, single layer Anesthetic Used: lidocaine 1% Anesthesia Technique: local infiltration Pre-repair: wound explored, irrigated extensively Type of Sutures: other (Monofilament) Size of Sutures: 5-0 Number of Sutures: 2 Technique: simple, interrupted Patient Tolerated Procedure: well, no complications Medical Decision Making - Medical Decision Making Was pt. sent in by a medical professional or institution (Dr. PA, WAREHOUSE LABORER, urgent care, hospital, or residential...) When possible be specific @ -No Did you speak to anyone other than the patient for history (EMS, parent, family, police, friend...)? What history was obtained from this source @ -No Did you review nursing and triage notes (agree or disagree)? Why? @ -I reviewed and agree with nursing and triage notes Were old charts reviewed (outside hosp., previous admission, EMS record, old EKG, old radiological studies, urgent care reports/EKG's, residential records)? Report findings @ -No old charts were reviewed Differential Diagnosis (chest pain, altered mental status, abdominal pain women, abdominal pain men, vaginal bleeding, weakness, fever, dyspnea, syncope, headache, dizziness, GI bleed, back pain, seizure, CVA, palpatations, mental health, musculoskeletal)? @ -Differential Musculoskeletal Muscular strain, contusion, ligament sprain, fracture, arthritis, septic arthritis, bursitis, cellulitis, muscle spasm, nerve compression, DVT, arterial occlusion, herpes zoster, electrolyte abnormality, tumor.... This is not meant to be in all inclusive list EKG interpreted by me (3pts min.). @ -None X-rays interpreted by me (1pt min.). @ -X-ray of the right hand showed no evidence for foreign body or acute f racture CT interpreted by me (1pt min.). @ -None done U/S interpreted by me (1pt. min.). @ -None done What testing was considered but not performed or refused? (CT, X-rays, U/S, labs)? Why? @ -None What meds were considered but not given or refused? Why? @ -None Did you discuss the management of the patient with other professionals (professionals i.e. , PA, WAREHOUSE LABORER, lab, RT, psych nurse, aids social worker, banana room cutter, teacher, state patrol officer, pillowcase cleaner)? Give summary @ -No Was smoking cessation discussed for >3mins.? @ -No Was critical care preformed (if so, how long)? @ -No Were there social determinants of health that impacted care today? How? (Homelessness, low income, unemployed, alcoholism, drug addiction, tr ansportation, low edu. Level, literacy, decrease access to med. care, skilled nursing, rehab)? @ -No Was there de-escalation of care discussed even if they declined (Discuss DNR or withdrawal of care, Hospice)? DNR status @ -No What co-morbidities impacted this encounter? (DM, HTN, Smoking, COPD, CAD, Cancer, CVA, ARF, Chemo, Hep., AIDS, mental health diagnosis, sleep apnea, morbid obesity)? @ -None Was patient admitted / discharged? Hospital course, mention meds given and route, prescriptions, significant lab abnormalities, going to OR and other pertinent info. @ -Discharged. Patient presented to emergency department with chief complaint of right hand laceration. X-ray was obtained which showed no evidence for foreign body or acute fracture. Wound was irrigated and cleaned. 2 simple interrupted sutures were placed in the right hand and patient was discharged in stable condition. Case discussed with my attending, Dr. Medina Undiagnosed new problem with uncertain prognosis? @ -No Drug Therapy requiring intensive monitoring for toxicity (Heparin, Nitro, Insulin, Cardizem)? @ -No Were any procedures done? @ -Yes laceration repair Diagnosis/symptom? @ -Laceration Acute, or Chronic, or Acute on Chronic? @ -Acute Uncomplicated (without systemic symptoms) or Complicated (systemic symptoms)? @ -Uncomplicated Side effects of treatment? @ -No Exacerbation, Progression, or Severe Exacerbation? @ -No Poses a threat to life or bodily function? How? (Chest pain, [place], [place], pneumonia, PE, COPD, DKA, ARF, appy, cholecystitis, CVA, Diverticulitis, Homicidal, Suicidal, threat to staff... and all critical care pts) @ -No Disposition Clinical Impression: Laceration Disposition: HOME SELF-CARE Condition: Stable Instructions (If sedation given, give patient instructions): Care For Your Stitches (ED) Additional Instructions: Please return to the emergency department for new or worsening symptoms. Is patient prescribed a controlled substance at d/c from ED?: No Referrals: Daniel Johnston MD [Primary Care Provider] - 1-2 days Time of Disposition: 16:50
--- NOTE | 2023-04-10 16:18 | XR ---
EXAMINATION TYPE: XR hand complete RT DATE OF EXAM: 04/10/2023 CLINICAL HISTORY: pain after trauma injury. TECHNIQUE: Frontal, lateral and oblique images of the right hand are obtained. COMPARISON: None. FINDINGS: There is no acute fracture/dislocation evident in the right hand. Mild to moderate narrowi ng and mild spurring throughout the PIP and DIP joints of the phalanges. Prominent spur from the ulna r dorsal base of the fifth middle phalanx. The overlying soft tissue appears unremarkable. IMPRESSION: There is no acute fracture or dislocation in the right hand.
== END 2023-04-10 16:50 | disposition home or self-care (01) ==
LOC: EC 14:22
DX: S61.411A Laceration without foreign body of right hand, initial encounter (principal); E11.9 Type 2 diabetes mellitus without complications; Z87.891 Personal history of nicotine dependence; Z79.899 Other long term (current) drug therapy; W01.0XXA Fall on same level from slipping, tripping and stumbling without subsequent striking against object, initial encounter
CPT/HCPCS: 73130; 90715; 99284; 90471; 12001; J2001; 99283

== ENCOUNTER 2023-05-14 06:53 | Day surgery (SDC) | payer OTHER ==
[2023-05-14 07:20] VITALS: RESP 16; TEMP 97.8
[2023-05-14 07:34] LABS: Glucose,Whole Blood 113 mg/dL (70-110)
[2023-05-14] MEDS ORDERED: PROPOFOL 10 MG/ML 20 ML VIAL IV ONE (08:12)
[2023-05-14] MEDS ORDERED: MIDAZOLAM 2 MG/2 ML VIAL ONE (08:12)
[2023-05-14] MEDS ORDERED: fentaNYL (PF) 50 MCG/ML 2 ML AMP ONE (08:12)
--- NOTE | 2023-05-14 08:14 | P.GSHP ---
History of Present Illness H&P Date: 05/14/23 Chief Complaint: Colon cancer screening 57-year-old male here for colonoscopy. Patient without bowel complaints. No family history of colon cancer. He thinks his last colonoscopy was normal. Past Medical History Past Medical History: Diabetes Mellitus, GERD/Reflux, Pneumonia Additional Past Medical History / Comment(s): hx Legionella pneumonia, muscle spasms in R leg/R arm and back, bilateral tinnitis, back pain History of Any Multi-Drug Resistant Organisms: None Reported Past Surgical History: Back Surgery, Orthopedic Surgery Additional Past Surgical History / Comment(s): spinal fusion, bilateral foot surgeries for high arches/pigeon toed, L elbow tendon surgery, L testicular benign growth removed, colonosocpy. PAIN CLINIC PROCEDURES Past Anesthesia/Blood Transfusion Reactions: No Reported Reaction Smoking Status: Former smoker - Past Family History Father Additional Family Medical History / Comment(s): ETOH abuse. from fall injury Mother Family Medical History: Cancer Additional Family Medical History / Comment(s): leukemia Medications and Allergies Home Medications Medication Instructions Recorded Confirmed Type Aspirin 81 mg PO DAILY #30 chewable 11/26/19 05/14/23 Rx Montelukast [Singulair] 10 mg PO DAILY 02/15/22 05/14/23 History metFORMIN HCL 1,000 mg PO 1530 02/15/22 05/14/23 History Magnesium + Zinc 1 tab PO DAILY 03/19/22 05/14/23 History Pravastatin Sodium [Pravachol] 10 mg PO HS 05/09/23 05/14/23 History Pregabalin 75 mg PO HS 05/09/23 05/14/23 History Allergies Allergy/AdvReac Type Severity Reaction Status Date / Time gabapentin [From Neurontin] AdvReac Confusion/d Verified 05/14/23 07:19 epression Surgical - Exam Vital Signs Temp Pulse Resp BP Pulse Ox 97.8 F 55 L 16 119/78 97 05/14/23 07:17 05/14/23 07:17 05/14/23 07:17 05/14/23 07:17 05/14/23 07:17 Physical exam: General: Well-developed, well-nourished HEENT: Normocephalic, sclerae nonicteric Abdomen: Nontender, nondistended Extremities: No edema Neuro: Alert and oriented Results - Labs Abnormal Lab Results - Last 24 Hours (Table) 05/14/23 Range/Units 07:27 POC Glucose (mg/dL) 113 H (70-110) mg/dL Assessment and Plan (1) Colon cancer screening Narrative/Plan: Will proceed with colonoscopy at this time. Current Visit: Yes Status: Acute Code(s): Z12.11 - ENCOUNTER FOR SCREENING FOR MALIGNANT NEOPLASM OF COLON SNOMED Code(s): 388059644
--- NOTE | 2023-05-14 08:24 | P.PCN ---
Date of Procedure: 05/14/23 Procedure(s) Performed: PREOPERATIVE DIAGNOSIS: Colon cancer screening POSTOPERATIVE DIAGNOSIS: Rectal polyp, diverticulosis PROCEDURE: Colonoscopy with snare polypectomy ANESTHESIA: MAC SURGEON: Anthony López M.D. SPECIMENS: Rectal polyp ENDOSCOPIC PROCEDURE: The patient was placed on the endoscopy table in the left decubitus position. The Olympus colonoscope was inserted into the anus and passed under direct visualization to the base of the cecum. The appendiceal orifice was visualized. From that point the scope was slowly withdrawn inspecting all surfaces carefully. There were no neoplastic inflammatory or polypoid lesions throughout the cecum, ascending, transverse, descending, and sigmoid colon. In the rectum there is noted to be a 8-9 mm polyp removed using the snare cautery technique. The remainder the rectum was normal. The patient had mild sided diverticulosis. Digital rectal examination was normal. The patient was taken to the recovery room in stable condition per anesthesia guidelines. RECOMMENDATIONS: Await biopsy results. Anticipate repeat colonoscopy 5 years.
[2023-05-14 08:43] VITALS: BP 105/68; PULSE 53
== END 2023-05-14 09:00 | disposition home or self-care (01) ==
LOC: ORWHC2ENDO 06:53
PROVIDERS: ATTEND Surgery
DX: Z12.11 Encounter for screening for malignant neoplasm of colon (principal); D12.8 Benign neoplasm of rectum; K57.30 Diverticulosis of large intestine without perforation or abscess without bleeding; K21.9 Gastro-esophageal reflux disease without esophagitis; E11.9 Type 2 diabetes mellitus without complications; J18.9 Pneumonia, unspecified organism; Z98.890 Other specified postprocedural states; Z87.891 Personal history of nicotine dependence; Z79.82 Long term (current) use of aspirin; Z79.84 Long term (current) use of oral hypoglycemic drugs; Z79.899 Other long term (current) drug therapy; Z88.8 Allergy status to other drugs, medicaments and biological substances
CPT/HCPCS: 88305; 45385; J2250; J3010; J2704

== ENCOUNTER → 2024-06-10 | Outpatient (CLI) | payer OTHER ==
--- NOTE | 2024-07-02 08:11 | MR ---
Patient: Shon Aguilar A Ordering Physician: Unknown, Unknown ID: [id number] Phone, Pager: Phone: N/A Pager: N/A : 1965 Age/Gender: 58Y, M Primary Location: N/A Procedure: MR knee LT wo jacinto kwan Date: 06/10/2024 3:46:38 PM Order #: N/[id number] EXAMINATION TYPE: MR knee LT wo con DATE OF EXAM: 06/10/2024 COMPARISON: NONE HISTORY: Left knee medial pain and swelling for one year. TECHNIQUE: Multiplanar, multisequence images of the knee is performed without IV contrast. FINDINGS: MEDIAL MENISCUS: Truncated appearance medial meniscus particularly central body and posterior horn wi th horizontal increased signal extending to the superior articular surface. LATERAL MENISCUS: Anterior and posterior horns are intact without tear. CRUCIATE LIGAMENTS: The anterior and posterior cruciate ligaments are both abnormal. COLLATERAL LIGAMENTS: The medial collateral ligament and lateral collateral ligament complex are inta ct. Fluid signal surrounds the medial collateral ligament. EXTENSOR MECHANISM: Visualized quadriceps and patellar tendons are intact. EFFUSION: Large size suprapatellar joint effusion. POPLITEAL CYST: No popliteal/villalta cyst. TRICOMPARTMENT SPACES: Moderate tricompartment spurring. Tricompartment joint space loss most promine nt medial tibiofemoral compartment. CARTILAGE: Full thickness cartilaginous loss medial tibiofemoral compartment. BONE MARROW SIGNAL: Heterogeneous diminished T1 and increased T2 signal medial tibial femoral compart ment greatest involving the distal femur. OTHER: No additional significant abnormality is appreciated. IMPRESSION: 1. Complex full-thickness tear posterior horn of medial meniscus. 2. Essentially complete tears of the ACL and PCL. 3. Large-sized suprapatellar joint effusion. 4. Moderate MCL sprain injury.
== END | disposition home or self-care (01) ==
LOC: RADMRIMAIN 15:30
PROVIDERS: ATTEND Orthopaedic Surgery
DX: M17.12 Unilateral primary osteoarthritis, left knee (principal); S83.242A Other tear of medial meniscus, current injury, left knee, initial encounter; E11.9 Type 2 diabetes mellitus without complications

== ENCOUNTER → 2024-10-13 | Outpatient (CLI) | payer OTHER ==
[2024-10-05 16:58] LABS: Partial Thromboplastin Time 24.3 sec (22.0-30.0); Prothrombin Time 10.7 sec (10.0-12.5)
[2024-10-05 21:17] LABS: ALT 25 U/L (10-49); AST 25 U/L (14-35); Albumin 4.4 g/dL (3.8-4.9); Albumin/Globulin Ratio 1.76 Ratio (1.60-3.17); Alkaline Phosphatase 74 U/L (41-126); BUN/Creat Ratio 20.78 Ratio (12.00-20.00); Blood Urea Nitrogen 18.7 mg/dL (9.0-27.0); Calcium 9.6 mg/dL (8.7-10.3); Carbon Dioxide 24.2 mmol/L (21.6-31.8); Chloride 102 mmol/L (96-109); Globulin 2.5 g/dL (1.6-3.3); Glucose 95 mg/dL (70-110); Potassium 4.5 mmol/L (3.5-5.5); Sodium 137 mmol/L (135-145); Total Bilirubin 0.6 mg/dL (0.3-1.2); Total Protein 6.9 g/dL (6.2-8.2)
[2024-10-05 22:00] LABS: HCT 45.9 % (39.6-50.0); HGB 15.2 g/dL (13.0-17.0); MCH 31.3 pg (27.0-32.0); MCHC 33.1 g/dL (32.0-37.0); MCV 94.4 FL (80.0-97.0); Mean Platelet Volume 10.1 FL (9.5-12.2); NRBC Per 100 WBC 0 X 10*3/uL (0.00-0.01); Platelet Count 247 X 10*3/uL (140-440); RBC 4.86 X 10*6/uL (4.40-5.60); RDW 12.8 % (11.5-14.5)
== END | disposition home or self-care (01) ==
LOC: RADCTMAIN 10-05 13:46
PROVIDERS: ATTEND Orthopaedic Surgery
DX: Z01.818 Encounter for other preprocedural examination (principal); M25.462 Effusion, left knee
CPT/HCPCS: 80053; 83036; 85027; 85610; 85730; 87070

== ENCOUNTER 2024-10-23 10:27 | Day surgery (SDC) | payer OTHER ==
[2024-10-22 10:09] VITALS: BMI 28.3
[~2024-10-23 10:27] MED LIST changes: -LACTATED RINGERS 1,000 ML IV SCH; -LIDOCAINE 1% (10MG/ML) FOR IV START INTRADERMA PRN; +TRANEXAMIC 1,000 MG/100ML-NACL 1,000 MG in SALINE 1 100ML.BAG IV PRN; +TRANEXAMIC 1,000 MG/100ML-NACL 1,000 MG in SALINE 1 100ML.BAG IVPB PRN
[2024-10-23] MEDS ORDERED: HYDROmorphone 0.5 MG/0.5 ML SYRINGE IVP PRN ×3 (10:42→14:22)
[2024-10-23] MEDS: IV FLUID CONTINUATION 1,000 ML IV ONE (10:53)
[2024-10-23] MEDS: ACETAMINOPHEN TAB 500 MG TAB PO PRN (11:19)
[2024-10-23] MEDS: LACTATED RINGERS 1,000 ML IV SCH ×2 (11:19→15:39)
[2024-10-23] MEDS: oxyCODONE ER 10 MG TAB.ER.12H PO PRN (11:19)
[2024-10-23] MEDS: DOCUSATE 100 MG CAP PO PRN (11:19)
--- NOTE | 2024-10-23 11:25 | P.HPOR ---
History of Present Illness H&P Date: 10/23/24 Very pleasant 59 year old male with advanced knee arthritis. Failed non-op treatment and presents for total knee. Past Medical History Past Medical History: Diabetes Mellitus, GERD/Reflux, Pneumonia Additional Past Medical History / Comment(s): hx Legionella pneumonia, muscle spasms in R leg/R arm and back, bilateral tinnitis, back pain History of Any Multi-Drug Resistant Organisms: None Reported Past Surgical History: Back Surgery, Orthopedic Surgery Additional Past Surgical History / Comment(s): spinal fusion, bilateral foot surgeries for high arches/pigeon toed, L elbow tendon surgery, L testicular benign growth removed, colonosocpy. PAIN CLINIC PROCEDURES Past Anesthesia/Blood Transfusion Reactions: No Reported Reaction Past Alcohol Use History: Rare Additional Past Alcohol Use History / Comment(s): Pt started smoking in 1972 and quit around 1989 - Past Family History Father Additional Family Medical History / Comment(s): ETOH abuse. from fall injury Mother Family Medical History: Cancer Additional Family Medical History / Comment(s): Leukemia. Medications and Allergies Home Medications Medication Instructions Recorded Confirmed Type Aspirin 81 mg PO DAILY #30 chewable 11/26/19 10/23/24 Rx metFORMIN HCL 1,000 mg PO BID 02/15/22 10/23/24 History Pravastatin Sodium [Pravachol] 40 mg PO HS 10/22/24 10/23/24 History Pregabalin [Lyrica] 100 mg PO BID 10/22/24 10/23/24 History Allergies Allergy/AdvReac Type Severity Reaction Status Date / Time gabapentin [From Neurontin] AdvReac Confusion/d Verified 10/23/24 10:56 epression Physical Examination Laying comfortable in bed Alert and oriented Knee shows large effusion, pain with PROM, motor/sensory intact. Results Xrays of the knee show advanced arthritis. Assessment and Plan Assessment: Severe left knee arthritis Plan: To OR for total knee replacement, left.
[2024-10-23] MEDS: ONDANSETRON 4 MG/2 ML VIAL IVP PRN (11:26)
[2024-10-23] MEDS: FAMOTIDINE 20 MG/2 ML VIAL IVP PRN (11:26)
[2024-10-23 11:27] LABS: Glucose,Whole Blood 109 mg/dL (70-110)
[2024-10-23] MEDS: DEXAMETHASONE SOD PHOSPHATE 10 MG/ML 1 ML VIAL IV PRN (11:27)
[2024-10-23] MEDS: KETOROLAC 15 MG/ML 1 ML VIAL IVP PRN (11:27)
[2024-10-23] MEDS: MIDAZOLAM 2 MG/2 ML VIAL IV PRN (11:44)
[2024-10-23] MEDS: fentaNYL (PF) 50 MCG/ML 2 ML AMP IVP PRN (11:44)
--- NOTE | 2024-10-23 12:10 | P.ANPRN ---
Procedure Note - Anesthesia - Nerve Block Performed Left Adductor Canal Single Time Out Performed: Yes Date of Procedure: 10/23/24 Procedure Start Time: 11:43 Procedure Stop Time: 11:49 Location of Patient: PreOp Indication: Acute Post-Operative Pain, Requested by Surgeon Sedation Type: Sedate with meaningful contact maintained Preparation: Sterile Prep Position: Supine Needle Types: Pajunk Needle Gauge: 21 Ultrasound used to visualize needle placement: Yes Ultrasound used to observe medication spread: Yes Injectate: 0.5% Ropivacaine (see comment for volume) (20 ml + 10 ml NS + 4 mg dexamethasone) Blood Aspirated: No Pain Paresthesia on Injection Noted: No Resistance on Injection: Normal Image Stored and Saved: Yes Events: Uneventful and Well Tolerated
--- NOTE | 2024-10-23 12:11 | P.ANPRN ---
Procedure Note - Anesthesia - Nerve Block Performed Left iPack Single Time Out Performed: Yes Date of Procedure: 10/23/24 Procedure Start Time: 11:50 Procedure Stop Time: 11:56 Location of Patient: PreOp Indication: Acute Post-Operative Pain, Requested by Surgeon Sedation Type: Sedate with meaningful contact maintained Preparation: Sterile Prep Position: Supine Needle Types: Pajunk Needle Gauge: 21 Ultrasound used to visualize needle placement: Yes Ultrasound used to observe medication spread: Yes Injectate: 0.5% Ropivacaine (see comment for volume) (20 mL +10 mL of normal saline +4 mg of dexamethasone) Blood Aspirated: No Pain Paresthesia on Injection Noted: No Resistance on Injection: Normal Image Stored and Saved: Yes Events: Uneventful and Well Tolerated
[2024-10-23] MEDS: ROPIVACAINE/EPI/CLONIDINE/KET 50 ML SYRINGE MISCELLANE PRN (12:56)
[2024-10-23] MEDS: LACTATED RINGERS 1,000 ML IV ONE (13:59)
[2024-10-23] MEDS ORDERED: MAGNESIUM HYDROXIDE 2,400 MG/30 ML CUP PO PRN (14:22)
[2024-10-23] MEDS ORDERED: HYDROcodone/APAP 5-325MG 1 EACH TAB PO PRN (14:22)
[2024-10-23] MEDS ORDERED: TEMAZEPAM 15 MG CAP PO PRN ×2 (14:22→22:00)
[2024-10-23] MEDS ORDERED: hydrOXYzine pamoate 25 MG CAP PO PRN (14:22)
[2024-10-23] MEDS ORDERED: HYDROcodone/APAP 10-325MG 1 EACH TAB PO PRN (14:22)
[2024-10-23] MEDS ORDERED: NA PHOS,M-B/NA PHOS,DI-BA 133 ML ENEMA RECTAL PRN (14:22)
[2024-10-23] MEDS ORDERED: bisacodyL 10 MG SUPP RECTAL PRN (14:22)
[2024-10-23] MEDS ORDERED: diazePAM 5 MG TAB PO PRN ×2 (14:22)
[2024-10-23] MEDS ORDERED: ONDANSETRON 4 MG/2 ML VIAL IVP PRN (14:22)
[2024-10-23] MEDS ORDERED: NALOXONE 0.4 MG/ML 1 ML VIAL IV PRN (14:22)
--- NOTE | 2024-10-23 14:22 | P.OP ---
Date of Procedure: 10/23/24 Preoperative Diagnosis: Severe left knee osteoarthritis Postoperative Diagnosis: Same Procedure(s) Performed: 1. Left total knee arthroplasty 2. Computer assisted musculoskeletal navigation using CT/MRI images Implants: 1. [place] [employer] CR Femur Size #4 2. [place] [employer] [place] Tibial Base Size # 3. [place] [employer] CS poly Size #4, 9-mm 4. [place] [employer] all poly patella, Size #32 Anesthesia: STEFANIAA, regional Surgeon: Rudi Molina Operational Trainer #1: Raudel Porter Estimated Blood Loss (ml): 100 IV fluids (ml): 800 Pathology: none sent Condition: stable Disposition: PACU Indications for Procedure: I met with the patient preoperatively in the office setting and discussed treatment of their symptomatic knee arthritis. They failed a long course of nonsurgical treatment and elected to proceed with an elective total knee replacement. I discussed the potential risks and complications at length and gave them ample time to ask questions. Risks discussed included: risks from ane sthesia, superficial site surgical infection, acute and/or chronic periprosthetic joint infection, delayed wound healing, drainage, wound necrosis, instability, stiffness, stiffness requiring manipulation and/or revision surgery, damage to local blood vessels or nerves, aseptic loosening of the implants, extensor mechanism issues including disruption, patellar maltracking, avascular necrosis etc., continued or worsened knee pain, generalized dissatisfaction with surgical outcome, need for revision surgery, an inability to regain preinjury level of function, DVT, PE, other medical complications, and possibly loss of life or limb. The patient voiced their understanding that while these are the most common complications other less common complications are possible. They provided both their verbal and written consent to go forward with surgery. Operative Findings: Severe medial compartment and moderate lateral and patellofemoral compartment arthritis Description of Procedure: The patient was identified in preoperative holding and the correct operative extremity was verified and marked with a marker. I reviewed the consent form with the patient at length. All of their questions were answered. The patient was given a block by anesthesia. They were then brought back to the operating room. They were transferred onto the operating room table where a general anesthetic, preoperative antibiotics, and tranexamic acid were administered by anesthesia. A tourniquet was applied to the proximal aspect of the operative extremity. The contralateral extremity was padded under the heel and secured to the operating room table with a nonsterile blue towel and tape. The ipsilateral arm was carefully draped across the patient's chest and secured with a pillow and foam. A post was applied over the lateral aspect of the ipsilateral thigh and a bolster was placed under the ipsilateral foot. I verified that the operative extremity was stable and the knee was flexed to 90. The operative extremity was then placed in a leg boyd, nonsterile drapes were applied, and the extremity was prepped and draped sterilely in the standard sterile fashion. Prior to starting surgery timeout was performed identifying the correct patient, operative extremity, and procedure. The leg was then elevated, exsanguinated with an Esmarch bandage, and the tourniquet was inflated. An anterior midline incision was made sharply with a scalpel. Once I had dissected deep to the superficial fascial layer medial and lateral flaps were elevated. A medial parapatellar arthrotomy was created. Upon opening the knee joint there were diffuse arthritic changes in all 3 compartments. The anterior horn of the medial meniscus were sharply released and a medial release was performed around the posterior medial corner of the knee to facilitate retractor placement. The fat pad was excised with electrocautery. The patella was found to be severely arthritic and a provisional cut was made with a sagittal saw to facilitate mobilization of the extensor mechanism during the procedure. Remnants of the ACL and PCL were then excised from the notch. 4 mm pins were then placed within the incision in the medial distal femur and proximal tibia. Arrays were applied to the pins and I verified they were completely tightened. The knee was then registered with the Synchronized robot and manipulations in implant position were made to balance the knee and opitmize implant position. Using the Trey robotic saw all cuts were made in accordance with our plan. After all bony fragments had been removed the cuts were verified with the planar probe. The tibia was then subluxed forward and sized. The knee was brought into flexion and a lamina regional property manager was placed to allow removal of the meniscal remnants both medially and laterally as well as posterior osteophytes. Local anesthetic was then infiltrated around the joint capsule. Trial implants were then placed within the knee. Range of motion and collateral ligament tension was then evaluated. Adjustments in implant size and position were then made accordingly. Once the knee was felt to be appropriately balanced the Trey pins were removed. The patella was then recut, sized, and punched. A trial patellar button was then placed. With the trial components in place, the patella tracked midline. The femur was then drilled and the trial component removed. The trial tibial component was then appropriately rotated, pinned, and prepared for the keel. All trial components were then removed from the knee. The knee was thoroughly irrigated with pulsatile lavage. Cement was prepared via vacuum mixing in a bowl on the back table. I then hand pressurized cement into the femur and tibia and placed the implants beginning with the tibial base tray and poly liner, femoral component, and finally the patellar button. All extruded cement was removed including from the pin sites. Once the cement had hardened the knee was evaluated one final time with the final polyethylene liner in place. The knee had full extension and flexion and felt stable to varus and valgus stress throughout the arc of motion. The tourniquet was released and with the tourniquet down the patella tracked midline. All bleeders were controlled with electrocautery. The knee was then soaked for 3 minutes with a dilute Betadine soak. The knee was thoroughly irrigated using 3 L of sterile saline and pulsatile lavage. The extensor mechanism was then reapproximated using pop off Vicryl sutures followed by a running barbed suture. The knee was then closed in layers with a 0 strata fix for the deep fascial layer, 2-0 strata fix for the superficial subcutaneous layer and Monocryl and Steri-Strips for the skin. A sterile dressing was applied. I verified that all instrument, sponge, and sharp counts were correct. The patient was then transferred off the operating room table, extubated, and brought to recovery having tolerated the procedure well. Raudel Porter PA-C was required as a skilled campaign assistant for patient positioning, draping, exposure, retraction, closure of wound and application of dressing PLAN: The patient can weight-bear as tolerated on the operative extremity. DVT prophylaxis with aspirin 81 mg twice a day based on preoperative risk stratification. Internal medicine for perioperative medical management. 2 doses of post-operative antibiotics. Physical therapy for gait training. Follow-up in the office in 2 weeks for wound check and x-rays of the knee including an AP and lateral.
--- NOTE | 2024-10-23 15:27 | XR ---
EXAMINATION TYPE: XR knee limited LT DATE OF EXAM: 10/23/2024 3:17 PM COMPARISON: None CLINICAL INDICATION: Male, 59 years old with history of Evaluation for Postop abnormality and alignme nt; PHH, pain TECHNIQUE: XR knee limited LT 2 views submitted. FINDINGS: Status post total knee arthroplasty changes with hardware in appropriate alignment and in tact. No evidence of fracture. Subcutaneous lucencies and lucencies within the joint consistent with surgical changes. IMPRESSION: Status post total knee arthroplasty changes with hardware intact and appropriate alignment. No fractu res identified. [facility], , 10/23/2024 3:25 PM
[2024-10-23] MEDS: diphenhydrAMINE 50 MG/ML 1 ML VIAL IVP STA (15:33)
[2024-10-23 16:48] LABS: Glucose,Whole Blood 179 mg/dL (70-110)
[2024-10-23] MEDS ORDERED: DEXTROSE 50% SYRINGE 50 ML IVP PRN ×2 (17:31)
--- NOTE | 2024-10-23 17:33 | P.CONS ---
History of Present Illness - Reason for Consult Consult date: 10/23/24 Medical management Requesting physician: Rudi Molina - Chief Complaint Left knee surgery - History of Present Illness Very pleasant 59-year-old patient who follows from the office of Dr. Johnston. Chronic stable medical conditions include diabetes, GERD, hyperlipidemia. Has arthritis in different joints. Today is undergone left total knee arthroplasty. Postprocedure laying in bed. Pain is controlled. No nausea vomiting. Denies any cardiac history. Review of systems: GEN.: None EYES: None HEENT: None NECK: None RESPIRATORY: None CARDIOVASCULAR: None GASTROINTESTINAL: None GENITOURINARY: None MUSCULOSKELETAL: Pain in different joints LYMPHATICS: None HEMATOLOGICAL: None PSYCHIATRY: None NEUROLOGICAL: None Social history: . Smoked for 17 years stopped in 1989. Alcohol rarely. 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 Physical examination: VITAL SIGNS: 70, 16, 113 x 56, 98% on 2 L GENERAL: BMI 28.5, reclining bed awake not in distress. EYES: Pupils equal. Conjunctiva nate l. HEENT: External appearance of nose and ears normal, oral cavity grossly normal. NECK: JVD not raised; masses not palpable. HEART: First and second heart sounds are normal; no edema. LUNGS: Respiratory rate normal; clear to auscultation. ABDOMEN: Soft, nontender, liver spleen not palpable, no masses palpable. PSYCH: Alert and oriented x3; mood and affect nate l. MUSCULOSKELETAL:No Clubbing/cyanosis;muscles-grossly intact. Dressing of the left knee. Evidence of OA in other joints NEUROLOGICAL: Cranial nerves grossly intact; no facial asymmetry, power and sensation grossly intact. LYMPHATICS: No lymph nodes palpable in the axilla and neck INVESTIGATIONS, reviewed in the clinical context: October 05, 2024: White count 7.9 hemoglobin 15.2 platelets 247 sodium 137 potassium 4.5 BUN 18.7 creatinine 0.9 HbA1c 6.0 AST 25 ALT 25 Assessment plan: -Left total knee arthroplasty DVT prophylaxis aspirin 81 twice daily. IV cefazolin for infection prophylaxis. Pain control -Diabetes mellitus type 2 on oral hypoglycemic Diabetic diet. Follow Accu-Cheks and sliding scale insulin. Metformin -Primary osteoarthritis of multiple joints Pain medication as needed -Hyperlipidemia Pravachol -GERD PPI Care was discussed with the patient. Questions answered. Patient is to follow- up with PCP upon discharge Thank you Dr. Molina Past Medical History Past Medical History: Diabetes Mellitus, GERD/Reflux, Pneumonia Additional Past Medical History / Comment(s): hx Legionella pneumonia, muscle spasms in R leg/R arm and back, bilateral tinnitis, back pain History of Any Multi-Drug Resistant Organisms: None Reported Past Surgical History: Back Surgery, Orthopedic Surgery Additional Past Surgical History / Comment(s): spinal fusion, bilateral foot surgeries for high arches/pigeon toed, L elbow tendon surgery, L testicular benign growth removed, colonosocpy. PAIN CLINIC PROCEDURES Past Anesthesia/Blood Transfusion Reactions: No Reported Reaction Past Psychological History: No Psychological Hx Reported Additional Psychological History / Comment(s): . Smoking Status: Former smoker Past Alcohol Use History: Rare Additional Past Alcohol Use History / Comment(s): Pt started smoking in 1972 and quit around 1989 Past Drug Use History: None Reported - Past Family History Father Additional Family Medical History / Comment(s): ETOH abuse. from fall injury Mother Family Medical History: Cancer Additional Family Medical History / Comment(s): Leukemia. Medications and Allergies Home Medications Medication Instructions Recorded Confirmed Type Aspirin 81 mg PO DAILY #30 chewable 11/26/19 10/23/24 Rx metFORMIN HCL 1,000 mg PO BID 02/15/22 10/23/24 History Pravastatin Sodium [Pravachol] 40 mg PO HS 10/22/24 10/23/24 History Pregabalin [Lyrica] 100 mg PO BID 10/22/24 10/23/24 History Aspirin 81 mg PO BID #60 tab 10/23/24 Rx Diclofenac Sodium [Voltaren] 75 mg PO BID #60 tab 10/23/24 Rx Docusate [Colace] 100 mg PO BID #60 capsule 10/23/24 Rx HYDROcodone/APAP 5-325MG [[place] 1 - 2 tab PO Q6HR PRN #56 tab 10/23/24 Rx 5-325] Omeprazole 40 mg PO DAILY #30 cap 10/23/24 Rx Ondansetron [Zofran] 4 mg PO Q8HR PRN #20 tab 10/23/24 Rx Allergies Allergy/AdvReac Type Severity Reaction Status Date / Time gabapentin [From Neurontin] AdvReac Confusion/d Verified 10/23/24 10:56 epression Physical Exam Vitals: Vital Signs Temp Pulse Pulse Resp BP Pulse Ox 10/23/24 16:15 70 16 113/56 98 10/23/24 16:02 73 16 114/60 98 10/23/24 15:46 71 16 121/61 98 10/23/24 15:36 74 16 120/63 98 10/23/24 15:15 77 16 116/56 98 10/23/24 14:53 74 15 117/56 98 10/23/24 14:41 97.8 F 76 15 128/61 98 10/23/24 11:58 63 16 99/74 98 10/23/24 11:40 98.0 F 65 16 139/79 96 Intake and Output 10/23/24 10/23/24 10/23/24 06:59 14:59 22:59 Intake Total 1250 0 Output Total 100 Balance 1150 0 Intake: IV 1250 0 Output: Estimated Blood Loss 100 Other: Weight 77.7 kg 77.7 kg Results Labs: Abnormal Lab Results - Last 24 Hours (Table) 10/23/24 Range/Units 16:47 POC Glucose (mg/dL) 179 H (70-110) mg/dL
[2024-10-23] MEDS: INSULIN ASPART (NovoLOG) 100 UNIT/ML VIAL SQ SCH (17:39)
[2024-10-23 20:17] LABS: Glucose,Whole Blood 226 mg/dL (70-110)
[2024-10-23] MEDS: PRAVASTATIN SODIUM 40 MG TAB PO SCH (20:42)
[2024-10-23] MEDS: ASPIRIN 81 MG PO SCH (20:42)
[2024-10-23] MEDS: metFORMIN 500 MG TAB PO SCH (20:42)
[2024-10-23] MEDS: PREGABALIN 100 MG CAP PO SCH (20:42)
[2024-10-23] MEDS: SENNOSIDES-DOCUSATE SODIUM 1 EACH TAB PO SCH (20:43)
[2024-10-24 06:44] LABS: Glucose,Whole Blood 162 mg/dL (70-110)
--- NOTE | 2024-10-24 08:20 | P.PN ---
Subjective Progress Note Date: 10/24/24 overall the patient is doing well. He has minimal pain in his left knee. He has not yet been up. According to the patient and the nurse he is been having difficulty dorsiflexing his ankle. Objective - Vital Signs Vital signs: Vital Signs Temp 97.9 F 10/24/24 01:16 Pulse 66 10/24/24 01:16 Resp 17 10/24/24 01:16 BP 99/61 10/24/24 01:16 Pulse Ox 97 10/24/24 01:16 FiO2 Intake & Output 10/23/24 10/24/24 10/24/24 18:59 06:59 18:59 Intake Total 1370 Output Total 100 1300 Balance 1270 -1300 Weight 77.7 kg Intake: IV 1250 Oral 120 Output: Urine 1300 Estimated Blood Loss 100 Other: # Voids 2 - Exam the patient is resting comfortably in bed. He is alert and able to answer questions. A focused exam of the left lower extremity was conducted. On inspection he has an intact dressing with no drainage or strike through. There is mild swelling in the thigh and calf but both are soft and compressible. Se nsation is intact to light touch throughout the left foot including the plantar aspect of the foot, the dorsum of the foot, and the first webspace. Femoral nerve function is intact and he is able to perform a straight leg raise and actively extend the knee. There is weakness with both dorsiflex and of the ankle and toes. He is able to actively plantarflex his ankle and toes against resistance. His foot is warm and well perfused. - Labs Labs: Abnormal Lab Results - Last 24 Hours (Table) 10/23/24 10/23/24 10/24/24 Range/Units 16:47 20:16 06:43 POC Glucose (mg/dL) 179 H 226 H 162 H (70-110) mg/dL Assessment and Plan Assessment: postoperative day #1 status post left total knee replacement Weakness with ankle dorsiflexion likely transient from local anesthetic during surgery, nerve block Plan: 1. Weightbearing as tolerated on the operative extremity. Up with assistance. 2. DVT prophylaxis with aspirin 81 mg twice a day 3. Physical therapy for gait training and mobilization. Monitor ankle weakness, I anticipate this will resolve today. 4. Internal medicine for perioperative medical management 5. PT for gait training 6. Disposition: Plan for discharge home today when pain is controlled and the patient has passed physical therapy.
--- NOTE | 2024-10-24 08:22 | P.DS ---
Providers Date of admission: 10/23/2024 Attending physician: Rudi Molina Consults: 10/23/24 14:22 Consult Physician Routine Consulting Provider: Cayetano Hopkins Consult Reason/Comments: post op medical management Do you want consulting provider notified?: Yes Primary care physician: Daniel Alcalamley [facility] Course: the patient is a very pleasant 59-year-old male who underwent uncomplicated tota l knee replacement yesterday. Following surgery he was transferred to the orthopedic floor in stable condition. He received 2 doses of postoperative antibiotics. He was transitioned from IV to oral pain medication. He was seen on postoperative day #1. He was doing relatively well and his pain was controlled. His exam was benign except for weakness with ankle and toe dorsiflexion. Sensation was intact to light touch throughout the left foot. He worked with physical therapy. He was ultimately cleared for discharge home. Patient Condition at Discharge: Good Plan - Discharge Summary Discharge Rx Participant: No New Discharge Prescriptions: New Docusate [Colace] 100 mg PO BID #60 capsule Diclofenac Sodium [Voltaren] 75 mg PO BID #60 tab Omeprazole 40 mg PO DAILY #30 cap Ondansetron [Zofran] 4 mg PO Q8HR PRN #20 tab PRN Reason: nausea Aspirin 81 mg PO BID #60 tab HYDROcodone/APAP 5-325MG [[place] 5-325] 1 - 2 tab PO Q6HR PRN #56 tab PRN Reason: Pain No Action Aspirin 81 mg PO DAILY #30 chewable Pregabalin [Lyrica] 100 mg PO BID metFORMIN HCL 1,000 mg PO BID Pravastatin Sodium [Pravachol] 40 mg PO HS Discharge Medication List Aspirin 81 mg PO DAILY #30 chewable 11/26/19 [Rx] metFORMIN HCL 1,000 mg PO BID 02/15/22 [History] Pravastatin Sodium [Pravachol] 40 mg PO HS 10/22/24 [History] Pregabalin [Lyrica] 100 mg PO BID 10/22/24 [History] Aspirin 81 mg PO BID #60 tab 10/23/24 [Rx] Diclofenac Sodium [Voltaren] 75 mg PO BID #60 tab 10/23/24 [Rx] Docusate [Colace] 100 mg PO BID #60 capsule 10/23/24 [Rx] HYDROcodone/APAP 5-325MG [[place] 5-325] 1 - 2 tab PO Q6HR PRN #56 tab 10/23/24 [Rx] Omeprazole 40 mg PO DAILY #30 cap 10/23/24 [Rx] Ondansetron [Zofran] 4 mg PO Q8HR PRN #20 tab 10/23/24 [Rx] Follow up Appointment(s)/Referral(s): Rudi Molina MD [Medical Doctor] - 2 Weeks Activity/Diet/Wound Care/Special Instructions: 1. Weight-bear as tolerated on your operative extremity unless instructed otherwise. Use a walker or other assistive device to ambulate. 2. Leave surgical dressing in place. If your dressing becomes saturated with blood, there is drainage, or the dressing becomes loose please contact the office. 3. It is okay to shower with your surgical dressing, but do not submerge in water (no hot tubs, bath's, swimming etc.) 4. Make sure to take her blood clot prevention medication as prescribed (aspirin, Eliquis, Xarelto, and Plavix are commonly prescribed medications for blood clot prevention) 5. While taking [place] or Percocet for pain make sure you're taking a stool softener (Colace) and drink lots of water. 6. Keep all follow-up appointments as scheduled. You will usually be seen in 1-2 weeks following surgery. 7. Please contact the office with any questions or concerns [phone] Discharge Disposition: HOME WITH HOME HEALTH SERVICES
[2024-10-24 08:58] VITALS: BP 127/70; PULSE 83; RESP 16; TEMP 98
[2024-10-24] MEDS: HYDROmorphone 1 MG/ML 1 ML SYRINGE IVP PRN (10:44)
[2024-10-24 10:55] LABS: Basophils # (A) 0.01 X 10*3/uL (0.00-0.10); Basophils % (A) 0.1 %; Eosinophils # (A) 0 X 10*3/uL (0.04-0.35); Eosinophils % (A) 0 %; HCT 38.1 % (39.6-50.0); HGB 12.6 g/dL (13.0-17.0); Lymphocytes # (A) 0.66 X 10*3/uL (0.90-5.00); Lymphocytes % (A) 4.3 %; MCH 30.4 pg (27.0-32.0); MCHC 33.1 g/dL (32.0-37.0); Mean Platelet Volume 9.7 FL (9.5-12.2); Monocytes # (A) 0.37 X 10*3/uL (0.20-1.00); Monocytes % (A) 2.4 %; NRBC Per 100 WBC 0 X 10*3/uL (0.00-0.01); Neutrophils % (A) 92.6 %; Platelet Count 217 X 10*3/uL (140-440); RBC 4.14 X 10*6/uL (4.40-5.60); RDW 12.6 % (11.5-14.5); WBC 15.44 X 10*3/uL (4.50-10.00)
[2024-10-24 11:30] LABS: Glucose,Whole Blood 169 mg/dL (70-110)
--- NOTE | 2024-10-24 13:32 | P.PN ---
Subjective Progress Note Date: 10/24/24 Very pleasant 59-year-old patient who follows from the office of Dr. Johnston. Chronic stable medical conditions include diabetes, GERD, hyperlipidemia. Has arthritis in different joints. Today is undergone left total knee arthroplasty. Postprocedure laying in bed. Pain is controlled. No nausea vomiting. Denies any cardiac history. 10/24. Patient seen and examined. State he feels better. Patient is stable for discharge. REVIEW OF SYSTEMS: CONSTITUTIONAL: No fever, no malaise,. CARDIOVASCULAR: No chest pain, no palpitations, no syncope. PULMONARY: No shortness of breath, no cough, GASTROINTESTINAL: No diarrhea, no nausea, no vomiting, no abdominal pain. NEUROLOGICAL: No headaches, no weakness, PHYSICAL EXAMINATION: GENERAL: The patient is alert and oriented x3, not in any acute distress. Well developed, well nourished. HEENT: Pupils are round and equally reacting to light. EOMI. No scleral icterus. No conjunctival pallor. Normocephalic, atraumatic. No pharyngeal erythema. No thyromegaly. CARDIOVASCULAR: S1 and S2 present. No murmurs, rubs, or gallops. PULMONARY: Chest is clear to auscultation, no wheezing or crackles. ABDOMEN: Soft, nontender, nondistended, normoactive bowel sounds. No palpable organomegaly. MUSCULOSKELETAL: Left knee surgical incision seen EXTREMITIES: No cyanosis, clubbing, or pedal edema. NEUROLOGICAL: Gross neurological examination did not reveal any focal deficits. SKIN: No rashes. Assessment and plan -Left total knee arthroplasty DVT prophylaxis aspirin 81 twice daily. -Diabetes mellitus type 2 on oral hypoglycemic Continue home meds -Primary osteoarthritis of multiple joints Pain medication as needed -Hyperlipidemia Pravachol -GERD PPI Labs and medication were reviewed.. Continue same treatment. Continue with symptomatic treatment. Resume home medication. Monitor labs and vitals. DVT and GI prophylaxis. Further recommendations as per clinical course of the patient Dictation was produced using [employer] dictation software. please excuse any grammatical, word or spelling errors. Objective - Vital Signs Vital signs: Vital Signs Temp 98.0 F 10/24/24 07:21 Pulse 83 10/24/24 07:21 Resp 16 10/24/24 07:21 BP 127/70 10/24/24 07:21 Pulse Ox 96 10/24/24 07:21 FiO2 Intake & Output 10/23/24 10/24/24 10/24/24 18:59 06:59 18:59 Intake Total 1370 Output Total 100 1300 Balance 1270 -1300 Weight 77.7 kg Intake: IV 1250 Oral 120 Output: Urine 1300 Estimated Blood Loss 100 Other: # Voids 2 - Labs CBC & Chem 7: 10/24/24 03:25 Labs: Abnormal Lab Results - Last 24 Hours (Table) 10/23/24 10/23/24 10/24/24 Range/Units 16:47 20:16 03:25 WBC 15.44 H (4.50-10.00) X 10*3/uL RBC 4.14 L (4.40-5.60) X 10*6/uL Hgb 12.6 L (13.0-17.0) g/dL Hct 38.1 L (39.6-50.0) % Immature Gran # 0.10 H (0.00-0.04) X 10*3/uL Neutrophils # 14.30 H (1.80-7.70) X 10*3/uL Lymphocytes # 0.66 L (0.90-5.00) X 10*3/uL Eosinophils # 0 L (0.04-0.35) X 10*3/uL POC Glucose (mg/dL) 179 H 226 H (70-110) mg/dL 10/24/24 10/24/24 Range/Units 06:43 11:25 WBC (4.50-10.00) X 10*3/uL RBC (4.40-5.60) X 10*6/uL Hgb (13.0-17.0) g/dL Hct (39.6-50.0) % Immature Gran # (0.00-0.04) X 10*3/uL Neutrophils # (1.80-7.70) X 10*3/uL Lymphocytes # (0.90-5.00) X 10*3/uL Eosinophils # (0.04-0.35) X 10*3/uL POC Glucose (mg/dL) 162 H 169 H (70-110) mg/dL
== END 2024-10-24 12:17 | disposition home health service (06) ==
LOC: OR 10:27 → 4SSUR 15:41 → OR 10-24 12:17
PROVIDERS: ATTEND Orthopaedic Surgery
DX: M17.12 Unilateral primary osteoarthritis, left knee (principal); E11.9 Type 2 diabetes mellitus without complications; E78.5 Hyperlipidemia, unspecified; G89.18 Other acute postprocedural pain; K21.9 Gastro-esophageal reflux disease without esophagitis; Z79.82 Long term (current) use of aspirin; Z79.84 Long term (current) use of oral hypoglycemic drugs; Z79.899 Other long term (current) drug therapy; Z87.891 Personal history of nicotine dependence; Z88.8 Allergy status to other drugs, medicaments and biological substances
CPT/HCPCS: 0055T; 27447; 64447; 64999; 85025